=== PATIENT | male | born 1965 | race Caucasian/White ===

== ENCOUNTER 2024-03-21 13:28 | Inpatient (IN) | payer MEDICAID ==
[~2024-03-21] VITALS: Ht 185.4 cm; Wt 76.0 kg
[2024-03-21 13:52] LABS: BASOPHILS # (AUTO) 0.1 X10'3 (0-0.2); EOSINOPHILS # (AUTO) 0.1 X10'3 (0-0.9); HEMOGLOBIN 11.9 g/dl (14.0-17.9); LYMPHOCYTES # (AUTO) 11.8 X10'3 (1.1-4.8); MEAN PLATELET VOLUME 7.7 FL (7.4-10.4); MONOCYTES # (AUTO) 1.3 X10'3 (0-0.9)
[2024-03-21 13:55] LABS: BASOPHILS % (AUTO) 0.3 % (0-1); EOSINOPHILS % (AUTO) 0.5 % (0-6); HEMATOCRIT 35.6 % (42.0-52.0); LYMPHOCYTES % (AUTO) 60.6 % (21-51); MEAN CORPUSCULAR HEMOGLOBIN 30.1 PG (27.0-31.0); MEAN CORPUSCULAR HGB CONC 33.2 g/dL (33.0-36.5); MEAN CORPUSCULAR VOLUME 90.6 FL (78-98); MONOCYTES % (AUTO) 6.7 % (2-12); NEUTROPHILS # (AUTO) 6.2 X10'3 (1.8-7.7); NEUTROPHILS % (AUTO) 31.9 % (42-75); PLATELET COUNT 270 X10'3 (140-440); RED BLOOD COUNT 3.94 X10'6 (4.70-6.10); RED CELL DISTRIBUTION WIDTH 13.9 % (11.5-14.5); WHITE BLOOD COUNT 19.4 X10'3 (4.5-11.0)
[2024-03-21 13:57] LABS: ALBUMIN 3.5 G/DL (3.4-5.0); ANION GAP 8 (8-16); BLOOD UREA NITROGEN 17 MG/DL (7-18); BUN/CREATININE RATIO 12.5 (10.0-20.0); CALCIUM 8.8 MG/DL (8.5-10.1); CHLORIDE 97 MMOL/L (99-107); CREATININE 1.36 MG/DL (0.60-1.10); GLUCOSE 103 MG/DL (70-104); POTASSIUM 4.4 MMOL/L (3.5-5.1); SODIUM 131 MMOL/L (135-145); TOTAL CARBON DIOXIDE 26.4 MMOL/L (24-32); eCRCL 65 ML/MIN; eGFR 53 ML/MIN
[2024-03-21 14:01] LABS: APTT 26 SECONDS (22-32); PROTHROMBIN TIME 10.9 SECONDS (9.0-12.0)
[2024-03-21 15:06] LABS: SMUDGE CELLS FEW; TOTAL CELLS COUNTED 100
[2024-03-21 15:07] LABS: BURR CELLS FEW; PLATELET ESTIMATE NORMAL
[2024-03-21 15:45] LABS: ALANINE AMINOTRANSFERASE 23 U/L (12-78); ALKALINE PHOSPHATASE 68 IU/L (46-116); ASPARTATE AMINO TRANSFERASE 20 U/L (10-37); BILIRUBIN,TOTAL 0.5 MG/DL (0.1-1.0); TOTAL PROTEIN 6.9 G/DL (6.4-8.2)
[2024-03-21 16:56] LABS: BILIRUBIN,URINE NEGATIVE (Neg); CLARITY,URINE CLEAR (Clear); COLOR,URINE YELLOW (Yellow); GLUCOSE, URINE NEGATIVE (Neg); KETONES,URINE NEGATIVE (Neg); LEUKOCYTE ESTERASE ,URINE NEGATIVE (Neg); NITRITES, URINE NEGATIVE (Neg); OCCULT BLOOD,URINE NEGATIVE (Neg); PROTEIN,URINE NEGATIVE (Neg); UA COLLECTION TYPE CLN CATCH MIDSTREAM; UROBILINOGEN,URINE 0.2 E.U/dL (0.2-1.0)
[2024-03-21] MEDS ORDERED: potassium Cl 20 mEq SR tablet PO PRN ×2 (17:45)
[2024-03-21] MEDS ORDERED: HYDROcodone/acetaminophen 10/325mg tab PO PRN (17:45)
[2024-03-21] MEDS ORDERED: HYDROcodone/acetaminophen 5mg/325mg tablet PO PRN (17:45)
[2024-03-21] MEDS ORDERED: magnesium 4gm in 100ml NS 100 ML IV PRN (17:45)
[2024-03-21] MEDS ORDERED: mag hydrox/Alum hydrox/simeth 30ml oral suspension PO PRN (17:45)
[2024-03-21] MEDS ORDERED: magnesium Cl slow-release 64mg tablet PO PRN (17:45)
[2024-03-21] MEDS ORDERED: magnesium 2GM in 50ml NS 50 ML IV PRN (17:45)
[2024-03-21] MEDS ORDERED: potassium Cl 40MEQ/1/2NS 520ml 520 ML IV PRN (17:45)
[2024-03-21] MEDS ORDERED: ondansetron/PF 4mg/2ml inj IV PRN (17:45)
[2024-03-21] MEDS ORDERED: acetaminophen 325mg tablet PO PRN ×2 (17:45)
[2024-03-21 18:15] LABS: HEMOGLOBIN A1C 5.9 % (4.5-6.2)
[2024-03-21] MEDS ORDERED: iohexol 350MG/ML 100ml bottle IV ONE ×2 (18:31→19:00)
[2024-03-21 18:41] LABS: URINE AMPHETAMINE SCREEN POSITIVE (Neg); URINE BARBITUATE SCREEN NEGATIVE (Neg); URINE BENZODIAZEPINES SCREEN NEGATIVE (Neg); URINE CANNABINOID SCREEN POSITIVE (Neg); URINE COCAINE SCREEN NEGATIVE (Neg); URINE METHADONE SCREEN NEGATIVE (Neg); URINE OPIATE SCREEN NEGATIVE (Neg); URINE PHENCYCLIDINE SCREEN NEGATIVE (Neg)
[2024-03-21] MEDS: normal saline 1000ml 1,000 ML IV SCH (19:13)
[2024-03-21] MEDS: K and/or MAG REPLACEMENT MC SCH (19:57)
[2024-03-21] MEDS: heparin, porcine 5000 units/ml vial SQ SCH (23:08)
[2024-03-22 02:00] VITALS: BP 147/93; PULSE 67; RESP 16; TEMP 96.5; O2SAT 98
[2024-03-22 07:34] LABS: EOSINOPHILS # (AUTO) 0.2 X10'3 (0-0.9); HEMOGLOBIN 12.6 g/dl (14.0-17.9); MEAN CORPUSCULAR HEMOGLOBIN 30.6 PG (27.0-31.0)
[2024-03-22 07:37] LABS: BASOPHILS % (AUTO) 0.1 % (0-1); EOSINOPHILS % (AUTO) 1.1 % (0-6); HEMATOCRIT 37.2 % (42.0-52.0); LYMPHOCYTES # (AUTO) 13.7 X10'3 (1.1-4.8); MEAN CORPUSCULAR HGB CONC 33.8 g/dL (33.0-36.5); MEAN CORPUSCULAR VOLUME 90.5 FL (78-98); MONOCYTES # (AUTO) 0.9 X10'3 (0-0.9); MONOCYTES % (AUTO) 4.4 % (2-12); NEUTROPHILS % (AUTO) 25.4 % (42-75); PLATELET COUNT 260 X10'3 (140-440); RED BLOOD COUNT 4.12 X10'6 (4.70-6.10); RED CELL DISTRIBUTION WIDTH 13.9 % (11.5-14.5); WHITE BLOOD COUNT 19.8 X10'3 (4.5-11.0)
[2024-03-22 07:47] LABS: PROTHROMBIN TIME 10.4 SECONDS (9.0-12.0)
[2024-03-22] MEDS ORDERED: hydrALAZINE 20mg/ml inj. IV PRN (07:50)
[2024-03-22 08:10] LABS: ALBUMIN 3.3 G/DL (3.4-5.0); ANION GAP 11 (8-16); BLOOD UREA NITROGEN 11 MG/DL (7-18); BUN/CREATININE RATIO 12.6 (10.0-20.0); CALCIUM 8.3 MG/DL (8.5-10.1); CHLORIDE 101 MMOL/L (99-107); CHOL/HDL RATIO 3.1 (0.00-4.99); CHOLESTEROL 203 MG/DL (0-200); CREATININE 0.87 MG/DL (0.60-1.10); GLUCOSE 85 MG/DL (70-104); HDL CHOLESTEROL 66 MG/DL (35-60); LDL CHOLESTEROL 124 MG/DL (50-100); MAGNESIUM 2.1 MG/DL (1.5-2.4); PHOSPHORUS 3.1 MG/DL (2.3-4.5); SODIUM 137 MMOL/L (135-145); TOTAL CARBON DIOXIDE 25.2 MMOL/L (24-32); TRIGLYCERIDES 57 MG/DL (20-135); eCRCL 102 ML/MIN; eGFR 90 ML/MIN
[2024-03-22] MEDS: multivitamins, therapeutics tablet PO SCH (08:48)
[2024-03-22] MEDS: nicotine 14mg patch - 24hr TD ONE (08:49)
[2024-03-22] MEDS: atorvastatin 20mg tablet PO SCH (08:50)
[2024-03-22 09:04] LABS: TOTAL CELLS COUNTED 100
[2024-03-22 09:08] LABS: PLATELET ESTIMATE NORMAL; SMUDGE CELLS 3+
[2024-03-22 09:09] LABS: BURR CELLS FEW
[2024-03-22] MEDS ORDERED: DIVA500T9 PO (09:55)
[2024-03-22] MEDS ORDERED: LUMA42CA PO (09:55)
[2024-03-22] MEDS ORDERED: FLUV100T21 PO (09:55)
[2024-03-22] MEDS ORDERED: OLAN10TA73 PO (09:55)
[2024-03-22 10:05] VITALS: BP 150/85; PULSE 86; RESP 18; TEMP 98.1; O2SAT 99
[2024-03-22 17:26] VITALS: BP 145/85; PULSE 92; RESP 14; TEMP 97.4; O2SAT 97
[2024-03-22 17:26] LABS: THYROID STIMULATING HORMONE 3.78 ulU/ml (0.34-4.50)
[2024-03-22 18:00] VITALS: BP 145/85; PULSE 92; RESP 14; TEMP 97.4; O2SAT 97
[2024-03-22] MEDS: fluvoxamine 25 MG tablet PO SCH (20:01)
[2024-03-22] MEDS: olanzapine 10mg tablet PO SCH (20:01)
[2024-03-22] MEDS: divalproex sod 250mg ER (24-hour) tablet PO SCH (20:01)
[2024-03-22 22:00] VITALS: BP 150/91; PULSE 78; O2SAT 96
[2024-03-23 06:00] VITALS: BP 145/85; PULSE 84; RESP 18; TEMP 97.7; O2SAT 98
[2024-03-23 07:37] LABS: BASOPHILS # (AUTO) 0.1 X10'3 (0-0.2); BASOPHILS % (AUTO) 0.3 % (0-1); HEMOGLOBIN 12.1 g/dl (14.0-17.9); LYMPHOCYTES % (AUTO) 60.3 % (21-51); RED CELL DISTRIBUTION WIDTH 13.9 % (11.5-14.5)
[2024-03-23 07:39] LABS: EOSINOPHILS # (AUTO) 0.2 X10'3 (0-0.9); EOSINOPHILS % (AUTO) 0.9 % (0-6); HEMATOCRIT 36.4 % (42.0-52.0); MEAN CORPUSCULAR HGB CONC 33.4 g/dL (33.0-36.5); MEAN PLATELET VOLUME 8.2 FL (7.4-10.4); MONOCYTES % (AUTO) 4.5 % (2-12); NEUTROPHILS # (AUTO) 7.8 X10'3 (1.8-7.7); PLATELET COUNT 264 X10'3 (140-440); RED BLOOD COUNT 4.04 X10'6 (4.70-6.10); WHITE BLOOD COUNT 23.1 X10'3 (4.5-11.0)
[2024-03-23 07:48] LABS: PROTHROMBIN TIME 10.3 SECONDS (9.0-12.0)
[2024-03-23] MEDS: LUMATEPERONE 42 MG PO SCH (08:00)
[2024-03-23 08:02] LABS: ALBUMIN 3.3 G/DL (3.4-5.0); ANION GAP 10 (8-16); BLOOD UREA NITROGEN 10 MG/DL (7-18); BUN/CREATININE RATIO 12.7 (10.0-20.0); CALCIUM 8.8 MG/DL (8.5-10.1); CHLORIDE 95 MMOL/L (99-107); CREATININE 0.79 MG/DL (0.60-1.10); GLUCOSE 94 MG/DL (70-104); PHOSPHORUS 3.2 MG/DL (2.3-4.5); POTASSIUM 4.3 MMOL/L (3.5-5.1); SODIUM 131 MMOL/L (135-145); TOTAL CARBON DIOXIDE 25.6 MMOL/L (24-32); eCRCL 107 ML/MIN; eGFR > 90 ML/MIN
[2024-03-23] MEDS: normal saline 1000ml 1,000 ML IV SCH (08:20)
[2024-03-23 08:49] LABS: PLATELET ESTIMATE NORMAL; SMUDGE CELLS 2+; TOTAL CELLS COUNTED 100
[2024-03-23 09:02] VITALS: BP_SYST 138; PULSE 88
[2024-03-23] MEDS: lisinopril 5mg tablet PO SCH (09:02)
[2024-03-23] MEDS ORDERED: LISI5TAB22 PO (10:33)
[2024-03-23] MEDS ORDERED: ATOR20TA66 PO (10:33)
[2024-03-23] MEDS ORDERED: MULT-1085 PO (10:38)
[2024-03-23] MEDS ORDERED: ASPI-1265 PO (11:22)
[2024-03-23] MEDS: sodium chloride 1gm tablet PO SCH (11:55)
== END 2024-03-23 14:33 | disposition home or self-care (01) | DRG 812 ==
LOC: ER 13:29 → ED HOLD 17:49 → EDBEDREQ 03-22 01:48 → ORTHO 4S 03-22 01:50
PROVIDERS: ADMIT Family Medicine; ATTEND Family Medicine
PROC: B3251ZZ Computerized Tomography (CT Scan) of Bilateral Common Carotid Arteries using Low Osmolar Contrast (ICD-10-PCS; principal; 2024-03-21)
PROC: B32G1ZZ Computerized Tomography (CT Scan) of Bilateral Vertebral Arteries using Low Osmolar Contrast (ICD-10-PCS; 2024-03-21)
PROC: B32R1ZZ Computerized Tomography (CT Scan) of Intracranial Arteries using Low Osmolar Contrast (ICD-10-PCS; 2024-03-21)
PROC: B3281ZZ Computerized Tomography (CT Scan) of Bilateral Internal Carotid Arteries using Low Osmolar Contrast (ICD-10-PCS; 2024-03-21)
DX: T43.651A Poisoning by methamphetamines accidental (unintentional), initial encounter (principal); N17.0 Acute kidney failure with tubular necrosis; G92.8 Other toxic encephalopathy; R62.7 Adult failure to thrive; D64.9 Anemia, unspecified; F15.10 Other stimulant abuse, uncomplicated; F12.10 Cannabis abuse, uncomplicated; F20.9 Schizophrenia, unspecified; Y92.89 Other specified places as the place of occurrence of the external cause; Z68.22 Body mass index [BMI] 22.0-22.9, adult
CPT/HCPCS: 36415; 70450; 70496; 70498; 70551; 71045; 80048; 80053; 80061; 80305; 81003; 82948; 83036; 83605; 83735; 84100; 84145; 84439; 84443; 85007; 85025; 85610; 85730; 87040; 87081; 92508; 92616; 93005; 93306; 99285; G0378; J1644; J7030; Q9967

== ENCOUNTER 2024-05-18 16:15 | Inpatient (IN) | payer MEDICAID ==
[~2024-05-18] VITALS: Ht 175.3 cm; Wt 81.6 kg
[2024-05-18 03:45] VITALS: RESP 16; O2SAT 92
[~2024-05-18 16:15] MED LIST: ATOR20TA66 PO; DIVA500T9 PO; FLUV100T21 PO; LISI5TAB22 PO; LUMA42CA PO; MULT-1085 PO; OLAN10TA73 PO
[2024-05-18 17:18] LABS: BASOPHILS # (AUTO) 0.1 X10'3 (0-0.2); EOSINOPHILS # (AUTO) 0.2 X10'3 (0-0.9); MEAN PLATELET VOLUME 7.5 FL (7.4-10.4); MONOCYTES # (AUTO) 0.9 X10'3 (0-0.9); NEUTROPHILS # (AUTO) 5.3 X10'3 (1.8-7.7)
[2024-05-18 17:20] LABS: BASOPHILS % (AUTO) 0.4 % (0-1); EOSINOPHILS % (AUTO) 0.7 % (0-6); HEMATOCRIT 34.5 % (42.0-52.0); HEMOGLOBIN 11.7 g/dl (14.0-17.9); LYMPHOCYTES # (AUTO) 17.3 X10'3 (1.1-4.8); LYMPHOCYTES % (AUTO) 72.8 % (21-51); MEAN CORPUSCULAR HEMOGLOBIN 30.8 PG (27.0-31.0); MEAN CORPUSCULAR HGB CONC 33.9 g/dL (33.0-36.5); MEAN CORPUSCULAR VOLUME 90.9 FL (78-98); NEUTROPHILS % (AUTO) 22.1 % (42-75); PLATELET COUNT 264 X10'3 (140-440); RED BLOOD COUNT 3.79 X10'6 (4.70-6.10); RED CELL DISTRIBUTION WIDTH 14.5 % (11.5-14.5); WHITE BLOOD COUNT 23.8 X10'3 (4.5-11.0)
[2024-05-18 17:27] LABS: ALBUMIN 3.5 G/DL (3.4-5.0); ANION GAP 7 (8-16); BLOOD UREA NITROGEN 14 MG/DL (7-18); BUN/CREATININE RATIO 18.9 (10.0-20.0); CALCIUM 8.7 MG/DL (8.5-10.1); CHLORIDE 96 MMOL/L (99-107); CREATININE 0.74 MG/DL (0.60-1.10); ETHANOL < 10 MG/DL (<10); GLUCOSE 105 MG/DL (70-104); POTASSIUM 4.2 MMOL/L (3.5-5.1); SALICYLATE 3.5 MG/DL (4.0-20.0); SODIUM 132 MMOL/L (135-145); eCRCL 105 ML/MIN; eGFR > 90 ML/MIN
[2024-05-18 17:37] LABS: ACETAMINOPHEN < 2.0 UG/ML (10-30)
[2024-05-18 18:27] LABS: TOTAL CELLS COUNTED 100
[2024-05-18 18:28] LABS: PLATELET ESTIMATE NORMAL
[2024-05-18 18:33] LABS: SMUDGE CELLS 2+
[2024-05-18 20:17] LABS: EOSINOPHILS # (AUTO) 0.1 X10'3 (0-0.9); MEAN PLATELET VOLUME 7.4 FL (7.4-10.4); MONOCYTES # (AUTO) 0.7 X10'3 (0-0.9)
[2024-05-18 20:18] LABS: BASOPHILS # (AUTO) 0.1 X10'3 (0-0.2); BASOPHILS % (AUTO) 0.3 % (0-1); EOSINOPHILS % (AUTO) 0.6 % (0-6); HEMOGLOBIN 11.2 g/dl (14.0-17.9); LYMPHOCYTES # (AUTO) 15.3 X10'3 (1.1-4.8); LYMPHOCYTES % (AUTO) 70.1 % (21-51); MEAN CORPUSCULAR HEMOGLOBIN 30.9 PG (27.0-31.0); MEAN CORPUSCULAR HGB CONC 33.9 g/dL (33.0-36.5); MEAN CORPUSCULAR VOLUME 91.1 FL (78-98); MONOCYTES % (AUTO) 3.3 % (2-12); NEUTROPHILS # (AUTO) 5.6 X10'3 (1.8-7.7); NEUTROPHILS % (AUTO) 25.7 % (42-75); PLATELET COUNT 251 X10'3 (140-440); RED BLOOD COUNT 3.62 X10'6 (4.70-6.10); RED CELL DISTRIBUTION WIDTH 14.1 % (11.5-14.5); WHITE BLOOD COUNT 21.9 X10'3 (4.5-11.0)
[2024-05-18 21:14] LABS: BILIRUBIN,URINE NEGATIVE (Neg); CLARITY,URINE CLEAR (Clear); COLOR,URINE YELLOW (Yellow); GLUCOSE, URINE NEGATIVE (Neg); KETONES,URINE NEGATIVE (Neg); LEUKOCYTE ESTERASE ,URINE NEGATIVE (Neg); NITRITES, URINE NEGATIVE (Neg); OCCULT BLOOD,URINE NEGATIVE (Neg); PH,URINE 7.5 (4.8-8.0); PROTEIN,URINE NEGATIVE (Neg); UROBILINOGEN,URINE 0.2 E.U/dL (0.2-1.0)
[2024-05-18 21:23] LABS: UA COLLECTION TYPE CLN CATCH MIDSTREAM
[2024-05-18 21:29] LABS: URINE AMPHETAMINE SCREEN NEGATIVE (Neg); URINE BARBITUATE SCREEN NEGATIVE (Neg); URINE BENZODIAZEPINES SCREEN NEGATIVE (Neg); URINE CANNABINOID SCREEN POSITIVE (Neg); URINE COCAINE SCREEN NEGATIVE (Neg); URINE METHADONE SCREEN NEGATIVE (Neg); URINE OPIATE SCREEN NEGATIVE (Neg); URINE PHENCYCLIDINE SCREEN NEGATIVE (Neg)
[2024-05-18] MEDS ORDERED: OLAN5TAB75 PO (21:42)
[2024-05-18] MEDS ORDERED: magnesium hydroxide 30ml (MOM) UD suspension PO PRN (22:20)
[2024-05-18] MEDS ORDERED: magnesium sulf-water 2g/50mL 50 ML IV PRN (22:20)
[2024-05-18] MEDS ORDERED: ondansetron/PF 4mg/2ml inj IV PRN (22:20)
[2024-05-18] MEDS ORDERED: mag hydrox/Alum hydrox/simeth 30ml oral suspension PO PRN (22:20)
[2024-05-18] MEDS ORDERED: potassium Cl 20 mEq SR tablet PO PRN ×2 (22:20)
[2024-05-18] MEDS ORDERED: potassium Cl 40MEQ/1/2NS 520ml 520 ML IV PRN (22:20)
[2024-05-18] MEDS ORDERED: magnesium Cl slow-release 64mg tablet PO PRN (22:20)
[2024-05-18] MEDS ORDERED: magnesium sulf-water 4G/100mL 100 ML IV PRN (22:20)
[2024-05-19] VITALS (8 sets, daily range): BP systolic 130–149; BP diastolic 70–94; PULSE 70–91; RESP 14–16; TEMP 96.9–98.1; O2SAT 92–100
[2024-05-19] MEDS: normal saline 1000ml 1,000 ML IV SCH (01:15)
[2024-05-19 05:54] LABS: BASOPHILS # (AUTO) 0.1 X10'3 (0-0.2); HEMOGLOBIN 11.2 g/dl (14.0-17.9); MONOCYTES # (AUTO) 0.8 X10'3 (0-0.9)
[2024-05-19 05:57] LABS: BASOPHILS % (AUTO) 0.4 % (0-1); EOSINOPHILS # (AUTO) 0.2 X10'3 (0-0.9); EOSINOPHILS % (AUTO) 1.2 % (0-6); HEMATOCRIT 33.5 % (42.0-52.0); LYMPHOCYTES # (AUTO) 15.3 X10'3 (1.1-4.8); LYMPHOCYTES % (AUTO) 74.1 % (21-51); MEAN CORPUSCULAR HEMOGLOBIN 30.3 PG (27.0-31.0); MEAN CORPUSCULAR HGB CONC 33.4 g/dL (33.0-36.5); MEAN CORPUSCULAR VOLUME 90.8 FL (78-98); MEAN PLATELET VOLUME 7.7 FL (7.4-10.4); MONOCYTES % (AUTO) 3.8 % (2-12); NEUTROPHILS # (AUTO) 4.2 X10'3 (1.8-7.7); NEUTROPHILS % (AUTO) 20.5 % (42-75); PLATELET COUNT 250 X10'3 (140-440); RED BLOOD COUNT 3.69 X10'6 (4.70-6.10); RED CELL DISTRIBUTION WIDTH 14.2 % (11.5-14.5); WHITE BLOOD COUNT 20.7 X10'3 (4.5-11.0)
[2024-05-19 06:12] LABS: ALANINE AMINOTRANSFERASE 19 U/L (12-78); ALBUMIN 3.1 G/DL (3.4-5.0); ALKALINE PHOSPHATASE 84 IU/L (46-116); ANION GAP 7 (8-16); ASPARTATE AMINO TRANSFERASE 11 U/L (10-37); BILIRUBIN,TOTAL 0.3 MG/DL (0.1-1.0); BLOOD UREA NITROGEN 12 MG/DL (7-18); BUN/CREATININE RATIO 17.4 (10.0-20.0); CALCIUM 8.6 MG/DL (8.5-10.1); CHLORIDE 98 MMOL/L (99-107); CREATININE 0.69 MG/DL (0.60-1.10); GLUCOSE 86 MG/DL (70-104); PHOSPHORUS 3.3 MG/DL (2.3-4.5); POTASSIUM 4.1 MMOL/L (3.5-5.1); SODIUM 133 MMOL/L (135-145); TOTAL CARBON DIOXIDE 28.3 MMOL/L (24-32); TOTAL PROTEIN 6.3 G/DL (6.4-8.2); eCRCL 112 ML/MIN; eGFR > 90 ML/MIN
[2024-05-19 07:07] LABS: TOTAL CELLS COUNTED 100
[2024-05-19 07:09] LABS: PLATELET ESTIMATE NORMAL; SMUDGE CELLS 2+
[2024-05-19] MEDS: pantoprazole 40mg Tablet.DR PO SCH (07:30)
[2024-05-19] MEDS: K and/or MAG REPLACEMENT MC SCH (08:00)
[2024-05-19] MEDS: LUMATEPERONE TOSYLATE 42 MG PO SCH (08:00)
[2024-05-19] MEDS ORDERED: fentaNYL/PF 50MCG/1 ML 2ML syringe ONE (12:58)
[2024-05-19] MEDS ORDERED: MIDAZolam 1 MG/ML 5ML VIAL ONE (12:58)
[2024-05-19] MEDS ORDERED: LIDOcaine 2% Viscous 15ml cup ONE (12:58)
[2024-05-19] MEDS ORDERED: diphenhydrAMINE 50 mg/ml inj ONE (12:58)
[2024-05-19] MEDS: divalproex sod 250mg ER (24-hour) tablet PO SCH (14:39)
[2024-05-19] MEDS: fluvoxamine 25 MG tablet PO SCH (14:39)
[2024-05-19] MEDS: atorvastatin 20mg tablet PO SCH (14:39)
[2024-05-19] MEDS: lisinopril 5mg tablet PO SCH (14:42)
[2024-05-19] MEDS: heparin, porcine 5000 units/ml vial SQ SCH (14:42)
[2024-05-19] MEDS: OLANZAPINE 5 MG TABLET PO SCH (20:35)
[2024-05-20 08:00] VITALS: RESP 14; O2SAT 97
[2024-05-20 10:00] VITALS: BP 142/86; PULSE 96; RESP 14; TEMP 98.1; O2SAT 97
[2024-05-20 17:42] LABS: BASOPHILS # (AUTO) 0.1 X10'3 (0-0.2); BASOPHILS % (AUTO) 0.3 % (0-1); MEAN CORPUSCULAR HGB CONC 33.7 g/dL (33.0-36.5); MEAN PLATELET VOLUME 7.6 FL (7.4-10.4); MONOCYTES # (AUTO) 1.1 X10'3 (0-0.9); MONOCYTES % (AUTO) 4.9 % (2-12)
[2024-05-20 17:44] LABS: EOSINOPHILS # (AUTO) 0.2 X10'3 (0-0.9); EOSINOPHILS % (AUTO) 0.7 % (0-6); HEMATOCRIT 38.8 % (42.0-52.0); HEMOGLOBIN 13.1 g/dl (14.0-17.9); LYMPHOCYTES # (AUTO) 16.1 X10'3 (1.1-4.8); LYMPHOCYTES % (AUTO) 70.2 % (21-51); MEAN CORPUSCULAR HEMOGLOBIN 30.7 PG (27.0-31.0); MEAN CORPUSCULAR VOLUME 91.1 FL (78-98); NEUTROPHILS # (AUTO) 5.5 X10'3 (1.8-7.7); NEUTROPHILS % (AUTO) 23.9 % (42-75); PLATELET COUNT 299 X10'3 (140-440); RED BLOOD COUNT 4.25 X10'6 (4.70-6.10); RED CELL DISTRIBUTION WIDTH 13.9 % (11.5-14.5)
[2024-05-20 17:57] LABS: ALANINE AMINOTRANSFERASE 18 U/L (12-78); ALBUMIN 3.6 G/DL (3.4-5.0); ALKALINE PHOSPHATASE 102 IU/L (46-116); ANION GAP 9 (8-16); ASPARTATE AMINO TRANSFERASE 14 U/L (10-37); BILIRUBIN,TOTAL 0.3 MG/DL (0.1-1.0); BLOOD UREA NITROGEN 16 MG/DL (7-18); BUN/CREATININE RATIO 17.6 (10.0-20.0); CALCIUM 9.1 MG/DL (8.5-10.1); CHLORIDE 98 MMOL/L (99-107); CREATININE 0.91 MG/DL (0.60-1.10); GLUCOSE 93 MG/DL (70-104); POTASSIUM 4.2 MMOL/L (3.5-5.1); SODIUM 134 MMOL/L (135-145); TOTAL CARBON DIOXIDE 26.6 MMOL/L (24-32); TOTAL PROTEIN 7.1 G/DL (6.4-8.2); eCRCL 85 ML/MIN; eGFR 85 ML/MIN
[2024-05-20 18:00] VITALS: BP 133/91; PULSE 95; RESP 16; TEMP 98; O2SAT 98
[2024-05-20] MEDS: CefTRIAXone/D5W-Rocephin 1gm 50 ML IV SCH (19:39)
[2024-05-20] MEDS: vancomycin inj 1,000 MG in normal saline 250ml IV soln 250 ML IV SCH (19:40)
[2024-05-20 20:53] LABS: LYMPHOCYTES % (MANUAL) 65 % (21-51); MONOCYTES % (MANUAL) 4 % (2-12); NEUTROPHILS % (MANUAL) 31 % (42-75); SMUDGE CELLS 2+
[2024-05-20 20:54] LABS: PLATELET ESTIMATE NORMAL
[2024-05-20 20:56] LABS: TOTAL CELLS COUNTED 100
[2024-05-20 22:00] VITALS: BP 105/58; PULSE 78; RESP 16; TEMP 98.8; O2SAT 97
[2024-05-20] MEDS: acetaminophen 325mg tablet PO PRN (23:05)
[2024-05-21 06:35] LABS: BASOPHILS # (AUTO) 0.1 X10'3 (0-0.2); BASOPHILS % (AUTO) 0.2 % (0-1); EOSINOPHILS # (AUTO) 0.2 X10'3 (0-0.9); HEMOGLOBIN 13.1 g/dl (14.0-17.9); LYMPHOCYTES # (AUTO) 17.6 X10'3 (1.1-4.8)
[2024-05-21 06:37] LABS: HEMATOCRIT 38.7 % (42.0-52.0); LYMPHOCYTES % (AUTO) 74.3 % (21-51); MEAN CORPUSCULAR HEMOGLOBIN 30.8 PG (27.0-31.0); MEAN CORPUSCULAR HGB CONC 33.8 g/dL (33.0-36.5); MEAN PLATELET VOLUME 8.3 FL (7.4-10.4); MONOCYTES # (AUTO) 1.4 X10'3 (0-0.9); MONOCYTES % (AUTO) 5.7 % (2-12); NEUTROPHILS # (AUTO) 4.4 X10'3 (1.8-7.7); NEUTROPHILS % (AUTO) 18.8 % (42-75); PLATELET COUNT 280 X10'3 (140-440); RED BLOOD COUNT 4.25 X10'6 (4.70-6.10); WHITE BLOOD COUNT 23.6 X10'3 (4.5-11.0)
[2024-05-21 07:02] LABS: ALANINE AMINOTRANSFERASE 14 U/L (12-78); ALBUMIN 3.5 G/DL (3.4-5.0); ALKALINE PHOSPHATASE 90 IU/L (46-116); ANION GAP 7 (8-16); ASPARTATE AMINO TRANSFERASE 18 U/L (10-37); BILIRUBIN,TOTAL 0.4 MG/DL (0.1-1.0); BLOOD UREA NITROGEN 17 MG/DL (7-18); CALCIUM 8.8 MG/DL (8.5-10.1); CHLORIDE 102 MMOL/L (99-107); CREATININE 0.85 MG/DL (0.60-1.10); GLUCOSE 90 MG/DL (70-104); MAGNESIUM 2.3 MG/DL (1.5-2.4); PHOSPHORUS 4.5 MG/DL (2.3-4.5); POTASSIUM 4.3 MMOL/L (3.5-5.1); SODIUM 136 MMOL/L (135-145); TOTAL CARBON DIOXIDE 26.8 MMOL/L (24-32); TOTAL PROTEIN 6.9 G/DL (6.4-8.2); eCRCL 91 ML/MIN; eGFR > 90 ML/MIN
[2024-05-21 08:00] VITALS: RESP 16; O2SAT 96
[2024-05-21 10:00] VITALS: BP 115/73; PULSE 87; RESP 15; TEMP 97.7; O2SAT 99
[2024-05-21 18:00] VITALS: BP 136/91; PULSE 95; RESP 16; TEMP 97.4; O2SAT 99
[2024-05-21 22:00] VITALS: BP 137/79; PULSE 78; RESP 18; TEMP 98.3; O2SAT 97
[2024-05-22 08:00] VITALS: RESP 18
[2024-05-22 08:01] LABS: BASOPHILS # (AUTO) 0.1 X10'3 (0-0.2); BASOPHILS % (AUTO) 0.3 % (0-1); EOSINOPHILS # (AUTO) 0.2 X10'3 (0-0.9); HEMATOCRIT 35.9 % (42.0-52.0); HEMOGLOBIN 11.9 g/dl (14.0-17.9); LYMPHOCYTES % (AUTO) 75.7 % (21-51); MEAN CORPUSCULAR HEMOGLOBIN 30.2 PG (27.0-31.0); MEAN CORPUSCULAR HGB CONC 33.1 g/dL (33.0-36.5); MEAN CORPUSCULAR VOLUME 91.1 FL (78-98); MEAN PLATELET VOLUME 7.8 FL (7.4-10.4); MONOCYTES # (AUTO) 0.7 X10'3 (0-0.9); MONOCYTES % (AUTO) 3.4 % (2-12); NEUTROPHILS # (AUTO) 4.2 X10'3 (1.8-7.7); NEUTROPHILS % (AUTO) 19.6 % (42-75); PLATELET COUNT 267 X10'3 (140-440); RED BLOOD COUNT 3.94 X10'6 (4.70-6.10); RED CELL DISTRIBUTION WIDTH 14.3 % (11.5-14.5); WHITE BLOOD COUNT 21.2 X10'3 (4.5-11.0)
[2024-05-22 08:23] LABS: ALANINE AMINOTRANSFERASE 15 U/L (12-78); ALBUMIN 3.1 G/DL (3.4-5.0); ALKALINE PHOSPHATASE 83 IU/L (46-116); ANION GAP 6 (8-16); ASPARTATE AMINO TRANSFERASE 15 U/L (10-37); BILIRUBIN,TOTAL 0.4 MG/DL (0.1-1.0); BLOOD UREA NITROGEN 14 MG/DL (7-18); BUN/CREATININE RATIO 19.7 (10.0-20.0); CALCIUM 8.5 MG/DL (8.5-10.1); CHLORIDE 103 MMOL/L (99-107); CREATININE 0.71 MG/DL (0.60-1.10); GLUCOSE 89 MG/DL (70-104); MAGNESIUM 2.2 MG/DL (1.5-2.4); PHOSPHORUS 3.7 MG/DL (2.3-4.5); POTASSIUM 4.1 MMOL/L (3.5-5.1); SODIUM 136 MMOL/L (135-145); TOTAL CARBON DIOXIDE 26.6 MMOL/L (24-32); TOTAL PROTEIN 6.2 G/DL (6.4-8.2); eCRCL 109 ML/MIN; eGFR > 90 ML/MIN
[2024-05-22 09:29] LABS: BURR CELLS 1+; PLATELET ESTIMATE NORMAL; SMUDGE CELLS 2+; TOTAL CELLS COUNTED 100
[2024-05-22 09:30] LABS: POIKILOCYTOSIS 1+; SCHISTOCYTES FEW
[2024-05-22 10:55] VITALS: BP 124/68; PULSE 89; RESP 14; O2SAT 98
[2024-05-22] MEDS ORDERED: NICOTINE POLACRILEX 2 MG LOZENGE BC PRN (16:10)
[2024-05-22] MEDS ORDERED: loperamide 2mg capsule PO PRN (16:10)
[2024-05-22] MEDS ORDERED: acetaminophen 325mg tablet PO PRN ×2 (16:10)
[2024-05-22] MEDS ORDERED: mag hydrox/Alum hydrox/simeth 30ml oral suspension PO PRN (16:10)
[2024-05-22] MEDS ORDERED: magnesium hydroxide 30ml (MOM) UD suspension PO PRN (16:10)
[2024-05-23] MEDS ORDERED: nicotine 21mg patch - 24 hr TD SCH (08:00)
== END 2024-05-22 16:49 | DRG 254 ==
LOC: ER 16:16 → ED HOLD 22:18 → ORTHO 4S 05-19 02:50 → ADULT MH 05-22 16:06 → ORTHO 4S 05-22 16:06
PROVIDERS: ADMIT Internal Medicine Critical Care Medicine; ATTEND Family Medicine
PROC: 0DJ08ZZ Inspection of Upper Intestinal Tract, Via Natural or Artificial Opening Endoscopic (ICD-10-PCS; principal; 2024-05-19)
DX: T18.9XXA Foreign body of alimentary tract, part unspecified, initial encounter (principal); C95.90 Leukemia, unspecified not having achieved remission; E87.1 Hypo-osmolality and hyponatremia; F31.9 Bipolar disorder, unspecified; R62.7 Adult failure to thrive; Z20.822 Contact with and (suspected) exposure to COVID-19; F19.10 Other psychoactive substance abuse, uncomplicated; F20.9 Schizophrenia, unspecified; W44.8XXA Other foreign body entering into or through a natural orifice, initial encounter; Y93.89 Activity, other specified; Y92.89 Other specified places as the place of occurrence of the external cause; Y99.8 Other external cause status; Z68.26 Body mass index [BMI] 26.0-26.9, adult
CPT/HCPCS: 36415; 43235; 70450; 71045; 74018; 74176; 80048; 80053; 80305; 80320; 80329; 81003; 83605; 83735; 84100; 84145; 85007; 85025; 87040; 87081; 87811; 99152; 99285; A4620; G0378; J0696; J1200; J1644; J2250; J3010; J3370; J7030; J7050

== ENCOUNTER 2024-05-22 14:21 | Inpatient (IN) | payer MEDICAID ==
[~2024-05-22] VITALS: Ht 175.3 cm; Wt 76.8 kg
[~2024-05-22 14:21] MED LIST changes: -OLAN10TA73 PO; +OLAN5TAB75 PO
[2024-05-22] MEDS ORDERED: magnesium hydroxide 30ml (MOM) UD suspension PO PRN (16:30)
[2024-05-22] MEDS ORDERED: acetaminophen 325mg tablet PO PRN ×2 (16:30)
[2024-05-22] MEDS ORDERED: mag hydrox/Alum hydrox/simeth 30ml oral suspension PO PRN (16:30)
[2024-05-22] MEDS ORDERED: NICOTINE POLACRILEX 2 MG LOZENGE BC PRN (16:30)
[2024-05-22] MEDS ORDERED: loperamide 2mg capsule PO PRN (16:30)
[2024-05-22 17:04] VITALS: RESP 15; O2SAT 66
[2024-05-22 17:13] VITALS: BP 151/98; PULSE 66; RESP 15; TEMP 98.2; O2SAT 98
[2024-05-22 19:00] VITALS: BP 148/88; PULSE 80; RESP 14; TEMP 97.8; O2SAT 80; O2SAT 98
[2024-05-23 07:10] VITALS: BP 113/62; PULSE 82; RESP 16; TEMP 98.6; O2SAT 98
[2024-05-23] MEDS: LUMATEPERONE TOSYLATE 42 MG PO SCH (08:00)
[2024-05-23] MEDS: nicotine 21mg patch - 24 hr TD SCH (08:00)
[2024-05-23] MEDS: atorvastatin 20mg tablet PO SCH (08:45)
[2024-05-23] MEDS: lisinopril 5mg tablet PO SCH (08:45)
[2024-05-23] MEDS: fluvoxamine 25 MG tablet PO SCH (08:45)
[2024-05-23] MEDS: multivitamins, therapeutics tablet PO SCH (08:45)
[2024-05-23] MEDS: divalproex sod 250mg ER (24-hour) tablet PO SCH (08:45)
[2024-05-23 08:49] VITALS: RESP 16; O2SAT 98
[2024-05-23 09:13] LABS: CHOL/HDL RATIO 2.8 (0.00-4.99); CHOLESTEROL 138 MG/DL (0-200); HDL CHOLESTEROL 50 MG/DL (35-60); HEMOGLOBIN A1C 5.4 % (4.5-6.2); LDL CHOLESTEROL 71 MG/DL (50-100); TRIGLYCERIDES 66 MG/DL (20-135)
[2024-05-23 19:00] VITALS: BP 140/85; PULSE 85; RESP 18; TEMP 98.2; O2SAT 100
[2024-05-23] MEDS: OLANZAPINE 5 MG TABLET PO SCH (20:21)
[2024-05-24 07:09] VITALS: BP 108/78; PULSE 76; RESP 16; TEMP 97.9; O2SAT 96
[2024-05-24 09:09] VITALS: RESP 16; O2SAT 96
[2024-05-24] MEDS ORDERED: LUMATEPERONE TOSYLATE 42 MG PO SCH (14:24)
[2024-05-24 19:00] VITALS: RESP 18; O2SAT 94
[2024-05-24 19:22] VITALS: BP 128/78; PULSE 94; RESP 18; TEMP 97.3; O2SAT 98
[2024-05-24] MEDS: olanzapine 10mg tablet PO SCH (22:09)
[2024-05-25 07:22] VITALS: BP 102/73; PULSE 78; RESP 16; TEMP 97.8; O2SAT 98
[2024-05-25 08:14] VITALS: RESP 16; O2SAT 98
[2024-05-25 19:00] VITALS: RESP 14; O2SAT 92
[2024-05-25 19:41] LABS: EOSINOPHILS # (AUTO) 0.2 X10'3 (0-0.9); MONOCYTES # (AUTO) 1.2 X10'3 (0-0.9); RED BLOOD COUNT 3.87 X10'6 (4.70-6.10)
[2024-05-25 19:42] LABS: BASOPHILS % (AUTO) 0.2 % (0-1); EOSINOPHILS % (AUTO) 0.8 % (0-6); HEMATOCRIT 34.8 % (42.0-52.0); LYMPHOCYTES # (AUTO) 17.6 X10'3 (1.1-4.8); LYMPHOCYTES % (AUTO) 73.2 % (21-51); MEAN CORPUSCULAR HGB CONC 34.5 g/dL (33.0-36.5); MEAN PLATELET VOLUME 8.2 FL (7.4-10.4); NEUTROPHILS % (AUTO) 20.8 % (42-75); PLATELET COUNT 275 X10'3 (140-440); RED CELL DISTRIBUTION WIDTH 13.9 % (11.5-14.5)
[2024-05-25 19:47] VITALS: BP 110/67; PULSE 83; RESP 14; TEMP 97.4; O2SAT 92
[2024-05-25 19:55] LABS: ALANINE AMINOTRANSFERASE 25 U/L (12-78); ALBUMIN 3.4 G/DL (3.4-5.0); ALBUMIN/GLOBULIN RATIO 1.2 (1.1-1.5); ALKALINE PHOSPHATASE 102 IU/L (46-116); ANION GAP 7 (8-16); ASPARTATE AMINO TRANSFERASE 24 U/L (10-37); BILIRUBIN,TOTAL 0.2 MG/DL (0.1-1.0); BLOOD UREA NITROGEN 14 MG/DL (7-18); BUN/CREATININE RATIO 17.3 (10.0-20.0); CALCIUM 8.8 MG/DL (8.5-10.1); CHLORIDE 95 MMOL/L (99-107); CREATININE 0.81 MG/DL (0.60-1.10); GLUCOSE 87 MG/DL (70-104); POTASSIUM 4.4 MMOL/L (3.5-5.1); SODIUM 132 MMOL/L (135-145); TOTAL CARBON DIOXIDE 29.8 MMOL/L (24-32); TOTAL PROTEIN 6.3 G/DL (6.4-8.2); eCRCL 96 ML/MIN; eGFR > 90 ML/MIN
[2024-05-25 21:27] LABS: TOTAL CELLS COUNTED 100
[2024-05-25 21:28] LABS: PLATELET ESTIMATE NORMAL; POIKILOCYTOSIS 1+
[2024-05-25 21:29] LABS: BURR CELLS 1+; SCHISTOCYTES FEW; SMUDGE CELLS 2+
[2024-05-26 07:30] VITALS: BP 113/72; PULSE 87; RESP 16; TEMP 96.9; O2SAT 98
[2024-05-26 20:00] VITALS: BP 108/56; PULSE 78; RESP 14; TEMP 97.8; O2SAT 98
[2024-05-27 07:30] VITALS: BP 127/79; PULSE 74; RESP 16; TEMP 96.5; O2SAT 100
[2024-05-27 19:00] VITALS: BP 121/76; PULSE 80; RESP 16; TEMP 97.9; O2SAT 99
[2024-05-28 07:30] VITALS: BP 112/60; PULSE 83; RESP 18; TEMP 97.4; O2SAT 99
[2024-05-28 08:17] LABS: BASOPHILS # (AUTO) 0.1 X10'3 (0-0.2); BASOPHILS % (AUTO) 0.2 % (0-1); EOSINOPHILS # (AUTO) 0.3 X10'3 (0-0.9); EOSINOPHILS % (AUTO) 1.1 % (0-6); HEMATOCRIT 38.3 % (42.0-52.0); HEMOGLOBIN 12.9 g/dl (14.0-17.9); LYMPHOCYTES # (AUTO) 23.3 X10'3 (1.1-4.8); LYMPHOCYTES % (AUTO) 80.7 % (21-51); MEAN CORPUSCULAR HEMOGLOBIN 30.5 PG (27.0-31.0); MEAN CORPUSCULAR HGB CONC 33.7 g/dL (33.0-36.5); MEAN CORPUSCULAR VOLUME 90.5 FL (78-98); MEAN PLATELET VOLUME 8.2 FL (7.4-10.4); MONOCYTES # (AUTO) 0.9 X10'3 (0-0.9); NEUTROPHILS # (AUTO) 4.3 X10'3 (1.8-7.7); PLATELET COUNT 301 X10'3 (140-440); RED BLOOD COUNT 4.23 X10'6 (4.70-6.10)
[2024-05-28 08:18] LABS: WHITE BLOOD COUNT 28.8 X10'3 (4.5-11.0)
[2024-05-28 08:37] LABS: PLATELET ESTIMATE NORMAL; TOTAL CELLS COUNTED 100
[2024-05-28 19:00] VITALS: RESP 16; O2SAT 97
[2024-05-28 19:21] VITALS: BP 126/74; PULSE 76; RESP 16; TEMP 97.8; O2SAT 97
[2024-05-28] MEDS: OLANZAPINE 5 MG TABLET PO SCH (20:41)
[2024-05-29 07:00] VITALS: RESP 14; O2SAT 96
[2024-05-29 07:30] VITALS: BP 132/83; PULSE 78; RESP 14; TEMP 98; O2SAT 96
[2024-05-29 07:50] LABS: EOSINOPHILS # (AUTO) 0.3 X10'3 (0-0.9); HEMOGLOBIN 12.8 g/dl (14.0-17.9); MEAN CORPUSCULAR HGB CONC 34.6 g/dL (33.0-36.5); MEAN PLATELET VOLUME 7.7 FL (7.4-10.4); NEUTROPHILS # (AUTO) 3.6 X10'3 (1.8-7.7); NEUTROPHILS % (AUTO) 13.8 % (42-75); RED BLOOD COUNT 4.12 X10'6 (4.70-6.10)
[2024-05-29 07:51] LABS: BASOPHILS % (AUTO) 0.2 % (0-1); EOSINOPHILS % (AUTO) 1.1 % (0-6); HEMATOCRIT 37.1 % (42.0-52.0); LYMPHOCYTES # (AUTO) 21.4 X10'3 (1.1-4.8); LYMPHOCYTES % (AUTO) 81.8 % (21-51); MEAN CORPUSCULAR HEMOGLOBIN 31.2 PG (27.0-31.0); MEAN CORPUSCULAR VOLUME 90.2 FL (78-98); MONOCYTES # (AUTO) 0.8 X10'3 (0-0.9); MONOCYTES % (AUTO) 3.1 % (2-12); PLATELET COUNT 279 X10'3 (140-440); RED CELL DISTRIBUTION WIDTH 14.1 % (11.5-14.5)
[2024-05-29 08:06] LABS: ALANINE AMINOTRANSFERASE 26 U/L (12-78); ALBUMIN 3.5 G/DL (3.4-5.0); ALBUMIN/GLOBULIN RATIO 1.1 (1.1-1.5); ALKALINE PHOSPHATASE 90 IU/L (46-116); ANION GAP 5 (8-16); ASPARTATE AMINO TRANSFERASE 17 U/L (10-37); BILIRUBIN,TOTAL 0.3 MG/DL (0.1-1.0); BLOOD UREA NITROGEN 13 MG/DL (7-18); BUN/CREATININE RATIO 18.3 (10.0-20.0); CALCIUM 8.9 MG/DL (8.5-10.1); CHLORIDE 93 MMOL/L (99-107); CREATININE 0.71 MG/DL (0.60-1.10); GLUCOSE 95 MG/DL (70-104); POTASSIUM 4.8 MMOL/L (3.5-5.1); SODIUM 127 MMOL/L (135-145); TOTAL CARBON DIOXIDE 29.1 MMOL/L (24-32); TOTAL PROTEIN 6.8 G/DL (6.4-8.2); eCRCL 109 ML/MIN; eGFR > 90 ML/MIN
[2024-05-29 08:08] LABS: WHITE BLOOD COUNT 26.2 X10'3 (4.5-11.0)
[2024-05-29 10:36] LABS: TOTAL CELLS COUNTED 100
[2024-05-29 10:38] LABS: BURR CELLS 1+; PLATELET ESTIMATE NORMAL
[2024-05-29 19:40] VITALS: RESP 16; O2SAT 97
[2024-05-29 19:51] VITALS: BP 105/70; PULSE 86; RESP 16; TEMP 98; O2SAT 97
[2024-05-29] MEDS: olanzapine 10mg tablet PO SCH (20:09)
[2024-05-30 07:00] VITALS: BP 101/60; PULSE 74; RESP 16; RESP 74; TEMP 97.6; O2SAT 98
[2024-05-30 19:00] VITALS: BP 113/67; PULSE 88; RESP 20; RESP 22; TEMP 97.8; O2SAT 98
[2024-05-31 07:00] VITALS: BP 113/75; PULSE 79; RESP 16; TEMP 97.8; O2SAT 96
[2024-05-31 12:25] LABS: BASOPHILS % (AUTO) 0.1 % (0-1); EOSINOPHILS # (AUTO) 0.3 X10'3 (0-0.9); RED BLOOD COUNT 4.11 X10'6 (4.70-6.10)
[2024-05-31 12:27] LABS: HEMATOCRIT 37.3 % (42.0-52.0); HEMOGLOBIN 12.6 g/dl (14.0-17.9); LYMPHOCYTES # (AUTO) 21.3 X10'3 (1.1-4.8); LYMPHOCYTES % (AUTO) 78.1 % (21-51); MEAN CORPUSCULAR HEMOGLOBIN 30.6 PG (27.0-31.0); MEAN CORPUSCULAR HGB CONC 33.7 g/dL (33.0-36.5); MEAN CORPUSCULAR VOLUME 90.7 FL (78-98); MEAN PLATELET VOLUME 8.2 FL (7.4-10.4); MONOCYTES # (AUTO) 0.9 X10'3 (0-0.9); MONOCYTES % (AUTO) 3.4 % (2-12); NEUTROPHILS # (AUTO) 4.8 X10'3 (1.8-7.7); NEUTROPHILS % (AUTO) 17.4 % (42-75); PLATELET COUNT 280 X10'3 (140-440); RED CELL DISTRIBUTION WIDTH 14.1 % (11.5-14.5)
[2024-05-31 12:35] LABS: WHITE BLOOD COUNT 27.3 X10'3 (4.5-11.0)
[2024-05-31 12:37] LABS: ALANINE AMINOTRANSFERASE 26 U/L (12-78); ALBUMIN 3.7 G/DL (3.4-5.0); ALBUMIN/GLOBULIN RATIO 1.1 (1.1-1.5); ALKALINE PHOSPHATASE 100 IU/L (46-116); ANION GAP 7 (8-16); ASPARTATE AMINO TRANSFERASE 14 U/L (10-37); BILIRUBIN,TOTAL 0.4 MG/DL (0.1-1.0); BLOOD UREA NITROGEN 15 MG/DL (7-18); BUN/CREATININE RATIO 22.1 (10.0-20.0); CALCIUM 9.4 MG/DL (8.5-10.1); CHLORIDE 94 MMOL/L (99-107); CREATININE 0.68 MG/DL (0.60-1.10); GLUCOSE 95 MG/DL (70-104); POTASSIUM 4.7 MMOL/L (3.5-5.1); SODIUM 129 MMOL/L (135-145); TOTAL CARBON DIOXIDE 28.4 MMOL/L (24-32); eCRCL 114 ML/MIN; eGFR > 90 ML/MIN
[2024-05-31 13:04] LABS: PLATELET ESTIMATE NORMAL; TOTAL CELLS COUNTED 100
[2024-05-31] MEDS ORDERED: padimate O/petrolatum,white stick (Chapstick) TP PRN (13:50)
[2024-05-31 19:00] VITALS: RESP 16; O2SAT 99
[2024-05-31 20:00] VITALS: BP 91/54; PULSE 89; RESP 16; TEMP 98; O2SAT 99
[2024-06-01 07:00] VITALS: BP 114/72; PULSE 73; RESP 16; TEMP 97; O2SAT 97
[2024-06-01 19:00] VITALS: RESP 17; O2SAT 99
[2024-06-01 20:00] VITALS: BP 117/73; PULSE 83; RESP 17; TEMP 97.7; O2SAT 99
[2024-06-01] MEDS: docusate sod 100mg capsule PO SCH (20:34)
[2024-06-02 07:00] VITALS: BP 116/75; PULSE 89; RESP 12; TEMP 98.1; O2SAT 100
[2024-06-02 19:12] VITALS: BP 104/71; PULSE 95; RESP 15; TEMP 97.7; O2SAT 98
[2024-06-02 19:15] VITALS: RESP 15; O2SAT 98
[2024-06-03 07:30] VITALS: BP 113/79; PULSE 103; RESP 12; TEMP 97.3; O2SAT 100
[2024-06-03 07:35] LABS: BASOPHILS # (AUTO) 0.1 X10'3 (0-0.2); EOSINOPHILS # (AUTO) 0.5 X10'3 (0-0.9); MEAN CORPUSCULAR HEMOGLOBIN 30.4 PG (27.0-31.0); MEAN PLATELET VOLUME 8.2 FL (7.4-10.4)
[2024-06-03 07:38] LABS: BASOPHILS % (AUTO) 0.3 % (0-1); HEMATOCRIT 38.4 % (42.0-52.0); HEMOGLOBIN 12.9 g/dl (14.0-17.9); LYMPHOCYTES # (AUTO) 20.5 X10'3 (1.1-4.8); LYMPHOCYTES % (AUTO) 77.9 % (21-51); MEAN CORPUSCULAR HGB CONC 33.8 g/dL (33.0-36.5); MONOCYTES # (AUTO) 0.9 X10'3 (0-0.9); MONOCYTES % (AUTO) 3.3 % (2-12); NEUTROPHILS # (AUTO) 4.3 X10'3 (1.8-7.7); NEUTROPHILS % (AUTO) 16.5 % (42-75); PLATELET COUNT 292 X10'3 (140-440); RED BLOOD COUNT 4.26 X10'6 (4.70-6.10); RED CELL DISTRIBUTION WIDTH 13.9 % (11.5-14.5)
[2024-06-03 07:51] LABS: WHITE BLOOD COUNT 26.3 X10'3 (4.5-11.0)
[2024-06-03 08:07] LABS: ALANINE AMINOTRANSFERASE 26 U/L (12-78); ALBUMIN 3.8 G/DL (3.4-5.0); ALBUMIN/GLOBULIN RATIO 1.1 (1.1-1.5); ALKALINE PHOSPHATASE 98 IU/L (46-116); ANION GAP 7 (8-16); ASPARTATE AMINO TRANSFERASE 21 U/L (10-37); BILIRUBIN,TOTAL 0.3 MG/DL (0.1-1.0); BLOOD UREA NITROGEN 19 MG/DL (7-18); BUN/CREATININE RATIO 21.8 (10.0-20.0); CALCIUM 9.3 MG/DL (8.5-10.1); CHLORIDE 98 MMOL/L (99-107); CREATININE 0.87 MG/DL (0.60-1.10); GLUCOSE 97 MG/DL (70-104); POTASSIUM 4.7 MMOL/L (3.5-5.1); SODIUM 134 MMOL/L (135-145); TOTAL CARBON DIOXIDE 28.6 MMOL/L (24-32); TOTAL PROTEIN 7.4 G/DL (6.4-8.2); eCRCL 89 ML/MIN; eGFR 89 ML/MIN
[2024-06-03 08:36] LABS: OSMOLALITY 278 MOSM/K (280-300)
[2024-06-03 10:00] LABS: PLATELET ESTIMATE NORMAL; TOTAL CELLS COUNTED 100
[2024-06-03 17:18] LABS: OSMOLALITY UA 863 MOSM/K (50-1400)
[2024-06-03 17:19] LABS: SODIUM,URINE RANDOM 40 MEQ/L
[2024-06-03 18:57] VITALS: RESP 24; O2SAT 98
[2024-06-03 19:02] VITALS: BP 99/56; PULSE 101; RESP 24; TEMP 97.6; O2SAT 98
[2024-06-04 07:45] VITALS: BP 133/76; PULSE 93; RESP 16; TEMP 98.4; O2SAT 98
[2024-06-04 19:43] VITALS: RESP 16; O2SAT 99
[2024-06-04 19:44] VITALS: BP 129/76; PULSE 101; RESP 16; TEMP 97.9; O2SAT 99
[2024-06-04] MEDS: OLANZAPINE 5 MG TABLET PO SCH (20:09)
[2024-06-04] MEDS: olanzapine 10mg tablet PO SCH (20:09)
[2024-06-05 07:50] VITALS: BP 125/72; PULSE 72; RESP 16; TEMP 98.6; O2SAT 96
[2024-06-05] MEDS: lisinopril 2.5mg tablet PO SCH (09:22)
[2024-06-05 13:51] VITALS: BP 125/72; PULSE 72; RESP 16; TEMP 98.6; O2SAT 96
[2024-06-05] MEDS: magnesium citrate 296ml oral solution PO ONE (18:20)
[2024-06-05 19:02] VITALS: RESP 14; O2SAT 98
[2024-06-05 19:05] VITALS: BP 135/93; PULSE 83; RESP 16; TEMP 98.6; O2SAT 99
[2024-06-06 07:30] VITALS: BP 132/81; PULSE 82; RESP 16; TEMP 98.7; O2SAT 99
[2024-06-06 19:00] VITALS: RESP 16; O2SAT 100
[2024-06-06 20:00] VITALS: BP 120/69; PULSE 96; RESP 16; TEMP 98.3; O2SAT 100
[2024-06-07 07:00] VITALS: BP 128/79; PULSE 80; RESP 17; TEMP 97.5; O2SAT 93
[2024-06-07 19:26] VITALS: RESP 14; O2SAT 96
[2024-06-07 19:28] VITALS: BP 95/56; PULSE 95; RESP 14; TEMP 97.6; O2SAT 96
[2024-06-08 07:30] VITALS: BP 119/81; PULSE 77; RESP 14; TEMP 98.2; O2SAT 100
[2024-06-08 19:00] VITALS: RESP 12; O2SAT 96
[2024-06-08 20:00] VITALS: BP 121/75; PULSE 101; RESP 12; TEMP 99.1; O2SAT 99
[2024-06-09 07:30] VITALS: BP 112/72; PULSE 85; RESP 16; TEMP 98.2; O2SAT 99
[2024-06-09 19:00] VITALS: RESP 14; O2SAT 98
[2024-06-09 20:00] VITALS: BP 116/80; PULSE 95; RESP 22; TEMP 97.2; O2SAT 98
[2024-06-10 07:00] VITALS: RESP 16; O2SAT 99
[2024-06-10 08:00] VITALS: BP 129/78; PULSE 88; RESP 16; TEMP 98.2; O2SAT 99
[2024-06-10 19:00] VITALS: RESP 14; O2SAT 99
[2024-06-10 20:00] VITALS: BP 109/73; PULSE 106; RESP 14; TEMP 97.4; O2SAT 99
[2024-06-11 07:30] VITALS: BP 133/84; PULSE 89; RESP 14; TEMP 97.3; O2SAT 97
[2024-06-11 19:00] VITALS: RESP 20; O2SAT 98
[2024-06-11 20:00] VITALS: BP 119/80; PULSE 113; RESP 20; TEMP 97.6; O2SAT 98
[2024-06-12 07:15] VITALS: BP 108/83; PULSE 112; RESP 16; TEMP 97.6; O2SAT 98
[2024-06-12 07:57] VITALS: RESP 16; O2SAT 98
[2024-06-12 19:00] VITALS: RESP 16; O2SAT 98
[2024-06-12 20:00] VITALS: BP 128/80; PULSE 96; RESP 16; TEMP 97.3; O2SAT 98
[2024-06-13] MEDS: metoprolol succinate 25mg (24-HOUR) SR. Tablet PO SCH (07:23)
[2024-06-13 07:28] VITALS: RESP 16
[2024-06-13 07:30] VITALS: BP 119/81; PULSE 90; RESP 18; TEMP 98.2; O2SAT 98
[2024-06-13 19:00] VITALS: RESP 18; O2SAT 99
[2024-06-13 20:00] VITALS: BP 121/80; PULSE 81; RESP 18; TEMP 98.7; O2SAT 99
[2024-06-14 07:45] VITALS: BP 129/83; PULSE 78; RESP 18; TEMP 98.5; O2SAT 98
[2024-06-14 07:48] VITALS: RESP 18; O2SAT 98
[2024-06-14 19:00] VITALS: RESP 14; O2SAT 100
[2024-06-14 20:06] VITALS: BP 116/65; PULSE 78; RESP 14; TEMP 98.7; O2SAT 100
[2024-06-14] MEDS ORDERED: NICO-907 BC (23:48)
[2024-06-14] MEDS ORDERED: FLUV100T21 PO (23:48)
[2024-06-14] MEDS ORDERED: MULT-1085 PO (23:48)
[2024-06-14] MEDS ORDERED: ATOR40TA72 PO (23:48)
[2024-06-14] MEDS ORDERED: METO-395 PO (23:48)
[2024-06-14] MEDS ORDERED: LISI2.5T14 PO (23:48)
[2024-06-14] MEDS ORDERED: OLAN20TA19 PO (23:49)
[2024-06-14] MEDS ORDERED: OLAN5TAB75 PO (23:49)
[2024-06-15 07:00] VITALS: BP 113/75; PULSE 79; RESP 16; TEMP 98.8; O2SAT 99
[2024-06-15 08:15] VITALS: BP_SYST 130; PULSE 79
== END 2024-06-15 13:59 | disposition home or self-care (01) | DRG 750 ==
LOC: ADULT MH 14:21 → UNDOADMIN 16:19 → ADULT MH 16:19
PROVIDERS: ADMIT Psychiatry & Neurology Psychiatry; ATTEND Psychiatry & Neurology Psychiatry
PROC: GZHZZZZ Group Psychotherapy (ICD-10-PCS; principal; 2024-05-27)
PROC: GZ51ZZZ Individual Psychotherapy, Behavioral (ICD-10-PCS; 2024-05-27)
DX: F20.9 Schizophrenia, unspecified (principal); I95.9 Hypotension, unspecified; E87.1 Hypo-osmolality and hyponatremia; T18.9XXA Foreign body of alimentary tract, part unspecified, initial encounter; I10 Essential (primary) hypertension; K13.0 Diseases of lips; K59.00 Constipation, unspecified; F19.10 Other psychoactive substance abuse, uncomplicated; W44.8XXA Other foreign body entering into or through a natural orifice, initial encounter; E78.00 Pure hypercholesterolemia, unspecified; Z59.00 Homelessness unspecified; Z87.891 Personal history of nicotine dependence; Z79.899 Other long term (current) drug therapy; Y93.89 Activity, other specified; Y92.89 Other specified places as the place of occurrence of the external cause; Y99.8 Other external cause status
CPT/HCPCS: 36415; 74018; 74176; 80053; 80061; 83036; 83930; 83935; 84145; 84300; 85007; 85025; 85651; 87081; 93005

== ENCOUNTER 2024-06-16 12:36 | Inpatient (IN) | payer MEDICAID ==
[~2024-06-16] VITALS: Ht 175.3 cm; Wt 63.6 kg
[~2024-06-16 12:36] MED LIST changes: -ATOR20TA66 PO; +ATOR40TA72 PO; -DIVA500T9 PO; +LISI2.5T14 PO; -LISI5TAB22 PO; -LUMA42CA PO; +METO-395 PO; +NICO-907 BC; +OLAN20TA19 PO
[2024-06-16 13:17] LABS: BASOPHILS % (AUTO) 0.2 % (0-1); EOSINOPHILS # (AUTO) 0.5 X10'3 (0-0.9); EOSINOPHILS % (AUTO) 1.9 % (0-6); HEMATOCRIT 35.7 % (42.0-52.0); HEMOGLOBIN 11.8 g/dl (14.0-17.9); LYMPHOCYTES # (AUTO) 17.9 X10'3 (1.1-4.8); LYMPHOCYTES % (AUTO) 71.6 % (21-51); MEAN CORPUSCULAR HGB CONC 33.2 g/dL (33.0-36.5); MEAN CORPUSCULAR VOLUME 93.4 FL (78-98); MEAN PLATELET VOLUME 7.7 FL (7.4-10.4); MONOCYTES % (AUTO) 3.9 % (2-12); NEUTROPHILS # (AUTO) 5.6 X10'3 (1.8-7.7); NEUTROPHILS % (AUTO) 22.4 % (42-75); PLATELET COUNT 265 X10'3 (140-440); RED BLOOD COUNT 3.82 X10'6 (4.70-6.10); RED CELL DISTRIBUTION WIDTH 13.7 % (11.5-14.5)
[2024-06-16] MEDS: normal saline 1000ML IV soln IV ONE ×2 (13:23→14:49)
[2024-06-16 14:17] LABS: ALBUMIN 3.3 G/DL (3.4-5.0); ANION GAP 7 (8-16); BLOOD UREA NITROGEN 30 MG/DL (7-18); BUN/CREATININE RATIO 26.3 (10.0-20.0); CALCIUM 8.9 MG/DL (8.5-10.1); CHLORIDE 101 MMOL/L (99-107); CREATININE 1.14 MG/DL (0.60-1.10); GLUCOSE 138 MG/DL (70-104); MAGNESIUM 2.2 MG/DL (1.5-2.4); POTASSIUM 4.8 MMOL/L (3.5-5.1); SODIUM 134 MMOL/L (135-145); TOTAL CARBON DIOXIDE 26.3 MMOL/L (24-32); eCRCL 61 ML/MIN; eGFR 65 ML/MIN
[2024-06-16] MEDS: CefTRIAXone 2gm/D5W 50ml BAG 50 ML IV ONE (14:28)
[2024-06-16 14:30] LABS: BILIRUBIN,URINE NEGATIVE (Neg); CLARITY,URINE CLEAR (Clear); COLOR,URINE YELLOW (Yellow); GLUCOSE, URINE NEGATIVE (Neg); KETONES,URINE NEGATIVE (Neg); LEUKOCYTE ESTERASE ,URINE NEGATIVE (Neg); NITRITES, URINE NEGATIVE (Neg); OCCULT BLOOD,URINE NEGATIVE (Neg); PROTEIN,URINE 30 mg/dl (Neg); UROBILINOGEN,URINE 0.2 E.U/dL (0.2-1.0)
[2024-06-16 14:35] LABS: UA COLLECTION TYPE CLN CATCH MIDSTREAM
[2024-06-16 14:36] LABS: ALANINE AMINOTRANSFERASE 30 U/L (12-78); ALBUMIN/GLOBULIN RATIO 1.1 (1.1-1.5); ALKALINE PHOSPHATASE 93 IU/L (46-116); ASPARTATE AMINO TRANSFERASE 25 U/L (10-37); BILIRUBIN,DIRECT 0.1 MG/DL (0-0.3); BILIRUBIN,TOTAL 0.3 MG/DL (0.1-1.0); TOTAL PROTEIN 6.2 G/DL (6.4-8.2)
[2024-06-16 14:38] LABS: BACTERIA,URINE NONE SEEN /HPF (Neg); RBC,URINE NONE SEEN /HPF (0-2); WBC,URINE 0-4 /HPF (0-4)
[2024-06-16 14:39] LABS: MUCUS STRANDS NONE SEEN /LPF (Neg); SQUAMOUS EPITHELIAL CELL,UR NONE SEEN /LPF (FEW)
[2024-06-16 14:52] LABS: PLATELET ESTIMATE NORMAL; TOTAL CELLS COUNTED 100
[2024-06-16 14:53] LABS: SMUDGE CELLS 1+
[2024-06-16] MEDS ORDERED: mag hydrox/Alum hydrox/simeth 30ml oral suspension PO PRN (15:20)
[2024-06-16] MEDS ORDERED: potassium Cl 20 mEq SR tablet PO PRN ×2 (15:20)
[2024-06-16] MEDS ORDERED: HYDROcodone/acetaminophen 5mg/325mg tablet PO PRN (15:20)
[2024-06-16] MEDS ORDERED: ondansetron/PF 4mg/2ml inj IV PRN (15:20)
[2024-06-16] MEDS ORDERED: diphenhydrAMINE 25mg capsule PO PRN (15:20)
[2024-06-16] MEDS ORDERED: magnesium hydroxide 30ml (MOM) UD suspension PO PRN (15:20)
[2024-06-16] MEDS ORDERED: acetaminophen 325mg tablet PO PRN (15:20)
[2024-06-16] MEDS: normal saline 1000ml 1,000 ML IV SCH (16:08)
[2024-06-16] MEDS: enoxaparin 40mg/0.4ml syringe SUBCUT SCH (16:10)
[2024-06-16] MEDS ORDERED: temazepam 15mg capsule PO PRN (21:00)
[2024-06-17] MEDS: docusate sod 100mg capsule PO SCH (01:35)
[2024-06-17 03:20] LABS: EOSINOPHILS # (AUTO) 0.4 X10'3 (0-0.9); HEMOGLOBIN 10.7 g/dl (14.0-17.9); NEUTROPHILS # (AUTO) 5.9 X10'3 (1.8-7.7); RED CELL DISTRIBUTION WIDTH 13.8 % (11.5-14.5)
[2024-06-17 03:21] LABS: BASOPHILS % (AUTO) 0.1 % (0-1); EOSINOPHILS % (AUTO) 1.8 % (0-6); HEMATOCRIT 31.8 % (42.0-52.0); LYMPHOCYTES # (AUTO) 16.6 X10'3 (1.1-4.8); LYMPHOCYTES % (AUTO) 69.3 % (21-51); MEAN CORPUSCULAR HEMOGLOBIN 30.8 PG (27.0-31.0); MEAN CORPUSCULAR HGB CONC 33.6 g/dL (33.0-36.5); MEAN CORPUSCULAR VOLUME 91.9 FL (78-98); MEAN PLATELET VOLUME 7.8 FL (7.4-10.4); MONOCYTES % (AUTO) 4.3 % (2-12); NEUTROPHILS % (AUTO) 24.5 % (42-75); PLATELET COUNT 225 X10'3 (140-440); RED BLOOD COUNT 3.46 X10'6 (4.70-6.10); WHITE BLOOD COUNT 23.9 X10'3 (4.5-11.0)
[2024-06-17 03:43] LABS: ALANINE AMINOTRANSFERASE 26 U/L (12-78); ALBUMIN 2.7 G/DL (3.4-5.0); ALKALINE PHOSPHATASE 76 IU/L (46-116); ANION GAP 5 (8-16); ASPARTATE AMINO TRANSFERASE 18 U/L (10-37); BILIRUBIN,TOTAL 0.4 MG/DL (0.1-1.0); BLOOD UREA NITROGEN 19 MG/DL (7-18); BUN/CREATININE RATIO 23.2 (10.0-20.0); CALCIUM 8.1 MG/DL (8.5-10.1); CHLORIDE 106 MMOL/L (99-107); CREATININE 0.82 MG/DL (0.60-1.10); GLUCOSE 86 MG/DL (70-104); MAGNESIUM 1.9 MG/DL (1.5-2.4); PHOSPHORUS 2.9 MG/DL (2.3-4.5); POTASSIUM 3.9 MMOL/L (3.5-5.1); SODIUM 138 MMOL/L (135-145); TOTAL CARBON DIOXIDE 26.6 MMOL/L (24-32); TOTAL PROTEIN 5.4 G/DL (6.4-8.2); eCRCL 85 ML/MIN; eGFR > 90 ML/MIN
[2024-06-17 04:16] LABS: BURR CELLS FEW; PLATELET ESTIMATE NORMAL; SMUDGE CELLS 1+; TOTAL CELLS COUNTED 100
[2024-06-17 08:05] VITALS: RESP 16; O2SAT 95
[2024-06-17 10:42] VITALS: BP 132/78; PULSE 84; RESP 20; TEMP 97.8; O2SAT 98
[2024-06-17 11:51] LABS: URINE AMPHETAMINE SCREEN NEGATIVE (Neg); URINE BARBITUATE SCREEN NEGATIVE (Neg); URINE BENZODIAZEPINES SCREEN NEGATIVE (Neg); URINE CANNABINOID SCREEN NEGATIVE (Neg); URINE COCAINE SCREEN NEGATIVE (Neg); URINE METHADONE SCREEN NEGATIVE (Neg); URINE OPIATE SCREEN NEGATIVE (Neg); URINE PHENCYCLIDINE SCREEN NEGATIVE (Neg)
[2024-06-17] MEDS ORDERED: iohexol 350MG/ML 100ml bottle IV ONE ×2 (15:21→15:36)
[2024-06-17 18:00] VITALS: BP 146/83; PULSE 80; RESP 16; TEMP 97.6; O2SAT 99
[2024-06-17 20:00] VITALS: RESP 16; O2SAT 99
[2024-06-17 22:00] VITALS: BP 125/60; PULSE 73; RESP 16; TEMP 98.6; O2SAT 99
[2024-06-18 06:00] VITALS: BP 128/71; PULSE 77; RESP 18; TEMP 98.6; O2SAT 97
[2024-06-18 06:03] LABS: ALANINE AMINOTRANSFERASE 33 U/L (12-78); ALBUMIN 3.1 G/DL (3.4-5.0); ALKALINE PHOSPHATASE 95 IU/L (46-116); ANION GAP 8 (8-16); ASPARTATE AMINO TRANSFERASE 18 U/L (10-37); BILIRUBIN,TOTAL 0.2 MG/DL (0.1-1.0); BLOOD UREA NITROGEN 17 MG/DL (7-18); BUN/CREATININE RATIO 21.5 (10.0-20.0); CALCIUM 8.7 MG/DL (8.5-10.1); CHLORIDE 104 MMOL/L (99-107); CREATININE 0.79 MG/DL (0.60-1.10); GLUCOSE 88 MG/DL (70-104); MAGNESIUM 2.1 MG/DL (1.5-2.4); POTASSIUM 4.3 MMOL/L (3.5-5.1); SODIUM 141 MMOL/L (135-145); TOTAL CARBON DIOXIDE 29.2 MMOL/L (24-32); TOTAL PROTEIN 6.2 G/DL (6.4-8.2); eCRCL 88 ML/MIN; eGFR > 90 ML/MIN
[2024-06-18 06:06] LABS: BASOPHILS # (AUTO) 0.1 X10'3 (0-0.2); HEMOGLOBIN 11.2 g/dl (14.0-17.9); NEUTROPHILS # (AUTO) 4.3 X10'3 (1.8-7.7)
[2024-06-18 06:09] LABS: BASOPHILS % (AUTO) 0.3 % (0-1); EOSINOPHILS # (AUTO) 0.7 X10'3 (0-0.9); HEMATOCRIT 33.3 % (42.0-52.0); LYMPHOCYTES % (AUTO) 75.2 % (21-51); MEAN CORPUSCULAR HEMOGLOBIN 30.4 PG (27.0-31.0); MEAN CORPUSCULAR HGB CONC 33.6 g/dL (33.0-36.5); MEAN CORPUSCULAR VOLUME 90.6 FL (78-98); MEAN PLATELET VOLUME 7.9 FL (7.4-10.4); MONOCYTES # (AUTO) 0.8 X10'3 (0-0.9); MONOCYTES % (AUTO) 3.5 % (2-12); PLATELET COUNT 245 X10'3 (140-440); RED BLOOD COUNT 3.68 X10'6 (4.70-6.10); RED CELL DISTRIBUTION WIDTH 13.5 % (11.5-14.5)
[2024-06-18 09:30] VITALS: RESP 16; O2SAT 95
[2024-06-18 10:00] VITALS: BP 125/79; PULSE 91; RESP 18; TEMP 98.5; O2SAT 97
[2024-06-18] MEDS: piperacillin/tazo 4.5gm/100ml 100 ML IV SCH (13:46)
[2024-06-18 18:00] VITALS: BP 138/72; PULSE 90; RESP 15; TEMP 98.5; O2SAT 100
[2024-06-18 20:00] VITALS: RESP 15; O2SAT 100
[2024-06-18 22:00] VITALS: BP 129/78; PULSE 87; RESP 14; TEMP 98.3; O2SAT 97
[2024-06-19 06:46] VITALS: BP 138/80; PULSE 82; RESP 16; TEMP 97.7; O2SAT 97
[2024-06-19 06:51] LABS: BASOPHILS % (AUTO) 0.2 % (0-1); EOSINOPHILS # (AUTO) 0.6 X10'3 (0-0.9); HEMOGLOBIN 11.6 g/dl (14.0-17.9); LYMPHOCYTES # (AUTO) 15.3 X10'3 (1.1-4.8); RED CELL DISTRIBUTION WIDTH 13.8 % (11.5-14.5); WHITE BLOOD COUNT 19.9 X10'3 (4.5-11.0)
[2024-06-19 06:53] LABS: EOSINOPHILS % (AUTO) 2.9 % (0-6); HEMATOCRIT 34.5 % (42.0-52.0); MEAN CORPUSCULAR HEMOGLOBIN 30.5 PG (27.0-31.0); MEAN CORPUSCULAR HGB CONC 33.7 g/dL (33.0-36.5); MEAN CORPUSCULAR VOLUME 90.5 FL (78-98); MEAN PLATELET VOLUME 7.6 FL (7.4-10.4); MONOCYTES # (AUTO) 0.6 X10'3 (0-0.9); MONOCYTES % (AUTO) 3.1 % (2-12); NEUTROPHILS # (AUTO) 3.3 X10'3 (1.8-7.7); NEUTROPHILS % (AUTO) 16.8 % (42-75); PLATELET COUNT 243 X10'3 (140-440); RED BLOOD COUNT 3.81 X10'6 (4.70-6.10)
[2024-06-19 06:54] LABS: ALANINE AMINOTRANSFERASE 28 U/L (12-78); ALBUMIN 3.1 G/DL (3.4-5.0); ALBUMIN/GLOBULIN RATIO 0.9 (1.1-1.5); ALKALINE PHOSPHATASE 90 IU/L (46-116); ANION GAP 8 (8-16); ASPARTATE AMINO TRANSFERASE 20 U/L (10-37); BILIRUBIN,TOTAL 0.3 MG/DL (0.1-1.0); BLOOD UREA NITROGEN 18 MG/DL (7-18); BUN/CREATININE RATIO 21.4 (10.0-20.0); CHLORIDE 103 MMOL/L (99-107); CREATININE 0.84 MG/DL (0.60-1.10); GLUCOSE 99 MG/DL (70-104); MAGNESIUM 2.3 MG/DL (1.5-2.4); PHOSPHORUS 4.1 MG/DL (2.3-4.5); SODIUM 139 MMOL/L (135-145); TOTAL PROTEIN 6.4 G/DL (6.4-8.2); eCRCL 83 ML/MIN; eGFR > 90 ML/MIN
[2024-06-19 07:35] LABS: TOTAL CELLS COUNTED 100
[2024-06-19 07:36] LABS: BURR CELLS FEW; PLATELET ESTIMATE NORMAL; SMUDGE CELLS FEW
[2024-06-19 09:17] VITALS: RESP 16; O2SAT 95
[2024-06-19 10:00] VITALS: BP 122/80; PULSE 104; RESP 16; TEMP 98.4; O2SAT 100
[2024-06-19 19:00] VITALS: BP 126/78; PULSE 94; RESP 15; TEMP 97.5; O2SAT 97
[2024-06-19 22:00] VITALS: BP 123/89; PULSE 86; RESP 14; TEMP 97.7; O2SAT 96
[2024-06-20] VITALS (8 sets, daily range): BP systolic 108–141; BP diastolic 70–90; PULSE 78–98; RESP 14–18; TEMP 96.9–98.3; O2SAT 96–99
[2024-06-20 05:07] LABS: BASOPHILS % (AUTO) 0.2 % (0-1); EOSINOPHILS # (AUTO) 0.7 X10'3 (0-0.9); HEMOGLOBIN 12.2 g/dl (14.0-17.9)
[2024-06-20 05:08] LABS: BASOPHILS # (AUTO) 0.1 X10'3 (0-0.2); EOSINOPHILS % (AUTO) 3.2 % (0-6); HEMATOCRIT 37.2 % (42.0-52.0); LYMPHOCYTES # (AUTO) 16.2 X10'3 (1.1-4.8); LYMPHOCYTES % (AUTO) 74.2 % (21-51); MEAN CORPUSCULAR HEMOGLOBIN 30.3 PG (27.0-31.0); MEAN CORPUSCULAR HGB CONC 32.8 g/dL (33.0-36.5); MEAN CORPUSCULAR VOLUME 92.3 FL (78-98); MEAN PLATELET VOLUME 7.4 FL (7.4-10.4); MONOCYTES # (AUTO) 0.9 X10'3 (0-0.9); MONOCYTES % (AUTO) 4.1 % (2-12); NEUTROPHILS % (AUTO) 18.3 % (42-75); PLATELET COUNT 254 X10'3 (140-440); RED BLOOD COUNT 4.03 X10'6 (4.70-6.10); RED CELL DISTRIBUTION WIDTH 13.2 % (11.5-14.5); WHITE BLOOD COUNT 21.8 X10'3 (4.5-11.0)
[2024-06-20 05:31] LABS: ALANINE AMINOTRANSFERASE 34 U/L (12-78); ALBUMIN 3.2 G/DL (3.4-5.0); ALBUMIN/GLOBULIN RATIO 0.9 (1.1-1.5); ALKALINE PHOSPHATASE 92 IU/L (46-116); ANION GAP 7 (8-16); ASPARTATE AMINO TRANSFERASE 18 U/L (10-37); BILIRUBIN,TOTAL 0.3 MG/DL (0.1-1.0); BLOOD UREA NITROGEN 20 MG/DL (7-18); CALCIUM 9.2 MG/DL (8.5-10.1); CHLORIDE 103 MMOL/L (99-107); CREATININE 0.91 MG/DL (0.60-1.10); GLUCOSE 91 MG/DL (70-104); MAGNESIUM 2.2 MG/DL (1.5-2.4); PHOSPHORUS 4.8 MG/DL (2.3-4.5); POTASSIUM 4.6 MMOL/L (3.5-5.1); SODIUM 139 MMOL/L (135-145); TOTAL CARBON DIOXIDE 29.3 MMOL/L (24-32); TOTAL PROTEIN 6.7 G/DL (6.4-8.2); eCRCL 77 ML/MIN; eGFR 85 ML/MIN
[2024-06-20 05:45] LABS: LYMPHOCYTES % (MANUAL) 68 % (21-51); NEUTROPHILS % (MANUAL) 21 % (42-75); TOTAL CELLS COUNTED 100
[2024-06-20 05:46] LABS: BURR CELLS 1+; EOSINOPHILS % (MANUAL) 3 % (0-6); MONOCYTES % (MANUAL) 8 % (2-12); PLATELET ESTIMATE NORMAL; SMUDGE CELLS FEW
[2024-06-20] MEDS: mupirocin 2% nasal ointment 1gm UD NS STA (17:54)
[2024-06-20] MEDS: mupirocin 2% nasal ointment 1gm UD NS SCH (20:06)
[2024-06-21 06:00] VITALS: BP 111/78; PULSE 84; RESP 12; TEMP 98; O2SAT 97
[2024-06-21 06:13] LABS: BASOPHILS % (AUTO) 0.2 % (0-1); MEAN CORPUSCULAR HEMOGLOBIN 30.6 PG (27.0-31.0); MEAN CORPUSCULAR HGB CONC 33.3 g/dL (33.0-36.5)
[2024-06-21 06:16] LABS: EOSINOPHILS # (AUTO) 0.6 X10'3 (0-0.9); EOSINOPHILS % (AUTO) 2.8 % (0-6); HEMATOCRIT 37.7 % (42.0-52.0); HEMOGLOBIN 12.5 g/dl (14.0-17.9); LYMPHOCYTES # (AUTO) 15.6 X10'3 (1.1-4.8); LYMPHOCYTES % (AUTO) 69.4 % (21-51); MEAN CORPUSCULAR VOLUME 91.8 FL (78-98); MEAN PLATELET VOLUME 7.5 FL (7.4-10.4); MONOCYTES % (AUTO) 4.4 % (2-12); NEUTROPHILS # (AUTO) 5.2 X10'3 (1.8-7.7); NEUTROPHILS % (AUTO) 23.2 % (42-75); PLATELET COUNT 255 X10'3 (140-440); RED CELL DISTRIBUTION WIDTH 13.7 % (11.5-14.5); WHITE BLOOD COUNT 22.5 X10'3 (4.5-11.0)
[2024-06-21 06:19] LABS: ALANINE AMINOTRANSFERASE 33 U/L (12-78); ALBUMIN 3.4 G/DL (3.4-5.0); ALKALINE PHOSPHATASE 89 IU/L (46-116); ANION GAP 8 (8-16); ASPARTATE AMINO TRANSFERASE 17 U/L (10-37); BILIRUBIN,TOTAL 0.2 MG/DL (0.1-1.0); BLOOD UREA NITROGEN 17 MG/DL (7-18); BUN/CREATININE RATIO 26.6 (10.0-20.0); CALCIUM 9.2 MG/DL (8.5-10.1); CHLORIDE 102 MMOL/L (99-107); CREATININE 0.64 MG/DL (0.60-1.10); GLUCOSE 90 MG/DL (70-104); MAGNESIUM 2.3 MG/DL (1.5-2.4); PHOSPHORUS 4.2 MG/DL (2.3-4.5); POTASSIUM 4.3 MMOL/L (3.5-5.1); SODIUM 137 MMOL/L (135-145); TOTAL CARBON DIOXIDE 27.5 MMOL/L (24-32); TOTAL PROTEIN 6.9 G/DL (6.4-8.2); eCRCL 109 ML/MIN; eGFR > 90 ML/MIN
[2024-06-21 10:00] VITALS: BP_SYST 108; BP_SYST 111; BP_SYST 115; BP_SYST 136; BP_DIAS 77; BP_DIAS 81; BP_DIAS 83; BP_DIAS 85; PULSE 101; PULSE 118; PULSE 92; PULSE 96; RESP 16; TEMP 98.2; O2SAT 98
[2024-06-21 11:41] LABS: BILIRUBIN,URINE NEGATIVE (Neg); CLARITY,URINE CLEAR (Clear); COLOR,URINE YELLOW (Yellow); GLUCOSE, URINE NEGATIVE (Neg); KETONES,URINE NEGATIVE (Neg); LEUKOCYTE ESTERASE ,URINE NEGATIVE (Neg); NITRITES, URINE NEGATIVE (Neg); OCCULT BLOOD,URINE NEGATIVE (Neg); PROTEIN,URINE NEGATIVE (Neg); UROBILINOGEN,URINE 0.2 E.U/dL (0.2-1.0)
[2024-06-21 11:49] LABS: UA COLLECTION TYPE URINAL
[2024-06-21] MEDS: metoprolol succinate 25mg (24-HOUR) SR. Tablet PO ONE (17:22)
[2024-06-21 19:11] VITALS: BP 130/81; PULSE 90; RESP 18; TEMP 97.8; O2SAT 98
[2024-06-21] MEDS ORDERED: fluvoxamine 25 MG tablet PO SCH (20:00)
[2024-06-21] MEDS ORDERED: OLANZapine 5mg rapidly disint. tablet PO SCH (21:00)
[2024-06-21] MEDS ORDERED: OLANZAPINE 5 MG TABLET PO SCH (21:00)
[2024-06-21] MEDS ORDERED: OLAN5TAB3 PO (21:28)
[2024-06-21] MEDS ORDERED: LOP12.5T PO (21:28)
[2024-06-21] MEDS ORDERED: MULT-1085 PO (21:28)
[2024-06-21] MEDS ORDERED: METO-395 PO (21:28)
[2024-06-21] MEDS ORDERED: FLUV100T21 PO (21:28)
[2024-06-21] MEDS ORDERED: OLAN10TA3 PO (21:28)
[2024-06-21] MEDS ORDERED: ATOR40TA14 PO (21:28)
[2024-06-22] MEDS ORDERED: atorvastatin 20mg tablet PO SCH (08:00)
== END 2024-06-21 19:30 | DRG 720 ==
LOC: ER 12:36 → ED HOLD 15:36 → SUR 3N 06-17 07:53
PROVIDERS: ADMIT Registered Nurse Psychiatric/Mental Health; ATTEND Registered Nurse Psychiatric/Mental Health
PROC: B3251ZZ Computerized Tomography (CT Scan) of Bilateral Common Carotid Arteries using Low Osmolar Contrast (ICD-10-PCS; principal; 2024-06-17)
PROC: B32G1ZZ Computerized Tomography (CT Scan) of Bilateral Vertebral Arteries using Low Osmolar Contrast (ICD-10-PCS; 2024-06-17)
PROC: B32R1ZZ Computerized Tomography (CT Scan) of Intracranial Arteries using Low Osmolar Contrast (ICD-10-PCS; 2024-06-17)
PROC: B3281ZZ Computerized Tomography (CT Scan) of Bilateral Internal Carotid Arteries using Low Osmolar Contrast (ICD-10-PCS; 2024-06-17)
DX: A41.9 Sepsis, unspecified organism (principal); G93.41 Metabolic encephalopathy; N17.9 Acute kidney failure, unspecified; I95.1 Orthostatic hypotension; E86.0 Dehydration; I10 Essential (primary) hypertension; F19.10 Other psychoactive substance abuse, uncomplicated; F20.9 Schizophrenia, unspecified; F17.200 Nicotine dependence, unspecified, uncomplicated; Z79.899 Other long term (current) drug therapy; Z85.6 Personal history of leukemia
CPT/HCPCS: 36415; 70450; 70496; 70498; 71045; 80048; 80053; 80076; 80305; 81001; 81003; 83605; 83735; 84100; 84145; 84484; 85007; 85025; 87040; 87081; 93005; 93308; 93880; 97116; 97161; 97530; 99285; A6258; G0378; J0696; J1650; J2543; J7030; Q9967

== ENCOUNTER 2024-06-21 16:31 | Inpatient (IN) | payer MEDICAID ==
[~2024-06-21] VITALS: Ht 157.5 cm; Wt 86.4 kg
[2024-06-21 20:00] VITALS: BP 117/76; PULSE 91; RESP 16; TEMP 98.3; O2SAT 98
[2024-06-21] MEDS ORDERED: acetaminophen 325mg tablet PO PRN ×2 (20:45→20:50)
[2024-06-21] MEDS ORDERED: mag hydrox/Alum hydrox/simeth 30ml oral suspension PO PRN (20:50)
[2024-06-21] MEDS ORDERED: magnesium hydroxide 30ml (MOM) UD suspension PO PRN (20:55)
[2024-06-21] MEDS ORDERED: OLAN10TA3 PO (21:28)
[2024-06-21] MEDS ORDERED: OLAN5TAB3 PO (21:28)
[2024-06-21] MEDS ORDERED: FLUV100T21 PO (21:28)
[2024-06-21] MEDS ORDERED: ATOR40TA14 PO (21:28)
[2024-06-21] MEDS ORDERED: METO-395 PO (21:28)
[2024-06-21] MEDS ORDERED: MULT-1085 PO (21:28)
[2024-06-21] MEDS ORDERED: LOP12.5T PO (21:28)
[2024-06-21 22:31] VITALS: RESP 16; O2SAT 98
[2024-06-21] MEDS: olanzapine 10mg tablet PO SCH (22:59)
[2024-06-21] MEDS: OLANZAPINE 5 MG TABLET PO SCH (22:59)
[2024-06-22 07:00] VITALS: BP 108/74; PULSE 87; RESP 16; TEMP 98.4; O2SAT 99
[2024-06-22] MEDS: metoprolol succinate 25mg (24-HOUR) SR. Tablet PO SCH (08:14)
[2024-06-22] MEDS: fluvoxamine 25 MG tablet PO SCH (08:14)
[2024-06-22] MEDS: multivitamins, therapeutics tablet PO SCH (08:15)
[2024-06-22] MEDS: atorvastatin 20mg tablet PO SCH (08:15)
[2024-06-22 10:08] LABS: CHOL/HDL RATIO 3.1 (0.00-4.99); CHOLESTEROL 168 MG/DL (0-200); HDL CHOLESTEROL 55 MG/DL (35-60); LDL CHOLESTEROL 98 MG/DL (50-100); TRIGLYCERIDES 113 MG/DL (20-135)
[2024-06-22 10:55] LABS: HEMOGLOBIN A1C 5.4 % (4.5-6.2)
[2024-06-22 19:00] VITALS: RESP 16; O2SAT 99
[2024-06-22 20:00] VITALS: BP 110/75; PULSE 91; RESP 14; TEMP 98.3; O2SAT 98
[2024-06-23 07:00] VITALS: BP 127/78; PULSE 78; RESP 16; TEMP 97.2; O2SAT 98
[2024-06-23 19:00] VITALS: RESP 12; O2SAT 99
[2024-06-23 20:00] VITALS: BP 106/66; PULSE 87; RESP 12; TEMP 98.5; O2SAT 98
[2024-06-24 07:00] VITALS: RESP 15; O2SAT 98
[2024-06-24 08:00] VITALS: BP 129/72; PULSE 86; RESP 15; TEMP 97.7; O2SAT 98
[2024-06-24 19:00] VITALS: RESP 19; O2SAT 100
[2024-06-24 19:33] VITALS: BP 115/75; PULSE 84; RESP 16; TEMP 97.5; O2SAT 100
[2024-06-25 07:00] VITALS: RESP 14; O2SAT 99
[2024-06-25 08:00] VITALS: BP 140/78; PULSE 77; RESP 15; TEMP 97.8; O2SAT 99
[2024-06-25 19:25] VITALS: BP 107/68; PULSE 87; RESP 16; TEMP 97.5; O2SAT 98
[2024-06-25 19:32] VITALS: RESP 16; O2SAT 98
[2024-06-26 07:00] VITALS: BP 120/68; PULSE 76; RESP 16; TEMP 97.5; O2SAT 99
[2024-06-26 19:30] VITALS: RESP 16; O2SAT 98
[2024-06-26 20:00] VITALS: BP 113/76; PULSE 86; RESP 16; TEMP 97.8; O2SAT 98
[2024-06-27 07:00] VITALS: BP 132/81; PULSE 75; RESP 18; TEMP 97.3; O2SAT 100
[2024-06-27 19:00] VITALS: RESP 18; O2SAT 99
[2024-06-27 20:00] VITALS: BP 112/78; PULSE 90; RESP 18; TEMP 98.8; O2SAT 99
[2024-06-28 07:00] VITALS: BP 120/77; PULSE 75; RESP 16; TEMP 98.2; O2SAT 95
[2024-06-28 19:00] VITALS: BP 148/77; PULSE 79; RESP 16; RESP 19; TEMP 97.2; O2SAT 95; O2SAT 97
[2024-06-29 07:00] VITALS: BP 113/72; PULSE 68; RESP 16; TEMP 96.4; O2SAT 98
[2024-06-29 19:00] VITALS: RESP 20; O2SAT 98
[2024-06-29 20:00] VITALS: BP 99/69; PULSE 94; RESP 20; TEMP 98.4; O2SAT 98
[2024-06-30 07:00] VITALS: BP 122/70; PULSE 80; RESP 16; TEMP 97.5; O2SAT 97
[2024-06-30 19:00] VITALS: RESP 18; O2SAT 100
[2024-06-30 20:00] VITALS: BP 113/78; PULSE 103; RESP 18; TEMP 96.7; O2SAT 100
[2024-07-01 14:48] VITALS: BP 110/72; PULSE 72; RESP 12; TEMP 97.5; O2SAT 96
[2024-07-01 19:00] VITALS: RESP 12; O2SAT 100
[2024-07-01 19:58] VITALS: BP 104/66; PULSE 82; RESP 12; TEMP 97.5; O2SAT 100
[2024-07-02 07:30] VITALS: BP 121/75; PULSE 77; RESP 16; TEMP 98.5; O2SAT 98
[2024-07-02 19:39] VITALS: BP 102/70; PULSE 86; RESP 17; TEMP 96.5; O2SAT 97
[2024-07-02 19:41] VITALS: RESP 17; O2SAT 97
[2024-07-03 08:00] VITALS: BP 104/61; PULSE 72; RESP 16; TEMP 97.9; O2SAT 100
[2024-07-03 19:00] VITALS: BP 105/61; PULSE 80; RESP 16; RESP 18; TEMP 97.4; O2SAT 97
[2024-07-03 20:00] VITALS: BP 105/61; PULSE 80; RESP 16; TEMP 97.4; O2SAT 97
[2024-07-04 07:41] VITALS: BP 124/77; PULSE 82; RESP 15; TEMP 96.5; O2SAT 96
[2024-07-04 19:00] VITALS: BP 115/76; PULSE 85; RESP 16; TEMP 97.8; O2SAT 85; O2SAT 99
[2024-07-05 07:27] VITALS: BP 111/67; PULSE 68; RESP 16; TEMP 98; O2SAT 97
[2024-07-05 19:00] VITALS: RESP 18; O2SAT 99
[2024-07-05 19:53] VITALS: BP 109/66; PULSE 75; RESP 18; TEMP 98; O2SAT 99
[2024-07-06 07:00] VITALS: RESP 18; O2SAT 97
[2024-07-06 08:00] VITALS: BP 126/73; PULSE 88; RESP 18; TEMP 98.2; O2SAT 97
[2024-07-06 19:00] VITALS: RESP 16; O2SAT 97
[2024-07-06 20:00] VITALS: BP 107/64; PULSE 85; RESP 16; TEMP 97.2; O2SAT 97
[2024-07-07 07:30] VITALS: BP 100/76; PULSE 69; RESP 16; TEMP 97.4; O2SAT 96
[2024-07-07 19:00] VITALS: BP 113/69; PULSE 86; RESP 18; TEMP 98.2; O2SAT 97
[2024-07-08 07:00] VITALS: RESP 18; O2SAT 99
[2024-07-08 08:00] VITALS: BP 130/89; PULSE 79; RESP 18; TEMP 98.5; O2SAT 99
[2024-07-08] MEDS ORDERED: fluvoxamine 25 MG tablet PO SCH (08:10)
[2024-07-08] MEDS: fluvoxamine 25 MG tablet PO SCH (09:40)
[2024-07-08 19:00] VITALS: BP 109/59; PULSE 92; RESP 16; TEMP 98.3; O2SAT 97
[2024-07-09 07:00] VITALS: RESP 18; O2SAT 99
[2024-07-09 08:00] VITALS: BP 113/80; PULSE 63; RESP 16; TEMP 97.4; O2SAT 98
[2024-07-09 20:58] VITALS: BP 108/62; PULSE 90; RESP 20; TEMP 97.6; O2SAT 98
[2024-07-10 08:00] VITALS: BP 106/71; PULSE 69; RESP 16; TEMP 97; O2SAT 97
[2024-07-10 09:46] VITALS: RESP 16; O2SAT 97
[2024-07-10 19:00] VITALS: BP 115/68; PULSE 83; RESP 18; TEMP 98.3; O2SAT 99
[2024-07-11 07:00] VITALS: RESP 16; O2SAT 98
[2024-07-11 08:00] VITALS: BP 117/77; PULSE 73; RESP 16; TEMP 98.3; O2SAT 98
[2024-07-11 19:00] VITALS: BP 105/63; PULSE 79; RESP 16; TEMP 98.2; O2SAT 97
[2024-07-12 07:00] VITALS: RESP 14; O2SAT 97
[2024-07-12 08:00] VITALS: BP 137/79; PULSE 68; RESP 14; TEMP 97.5; O2SAT 97
[2024-07-12 19:00] VITALS: RESP 16; O2SAT 99
[2024-07-12 20:00] VITALS: BP 103/71; PULSE 91; RESP 16; TEMP 97.6; O2SAT 99
[2024-07-13 08:19] VITALS: BP 113/74; PULSE 74; RESP 16; TEMP 98.4; O2SAT 95
[2024-07-13 10:10] VITALS: RESP 16; O2SAT 95
[2024-07-13 19:00] VITALS: RESP 16; O2SAT 98
[2024-07-13 20:00] VITALS: BP 127/76; PULSE 89; RESP 16; TEMP 97.9; O2SAT 98
[2024-07-14 07:45] VITALS: RESP 16; O2SAT 97
[2024-07-14 08:36] VITALS: BP 125/79; PULSE 72; RESP 16; TEMP 97.5; O2SAT 98
[2024-07-14 19:00] VITALS: RESP 18; O2SAT 97
[2024-07-14 20:00] VITALS: BP 102/63; PULSE 84; RESP 18; TEMP 97.9; O2SAT 97
[2024-07-15 07:30] VITALS: BP 114/73; PULSE 72; RESP 16; TEMP 97.1; O2SAT 95
[2024-07-15 19:00] VITALS: RESP 20; O2SAT 97
[2024-07-15 20:00] VITALS: BP 119/73; PULSE 99; RESP 20; TEMP 97.6; O2SAT 97
[2024-07-16 07:45] VITALS: BP 121/78; PULSE 71; RESP 16; TEMP 97.8; O2SAT 97
[2024-07-16 19:40] VITALS: RESP 16; O2SAT 97
[2024-07-16 20:00] VITALS: BP 109/66; PULSE 78; RESP 16; TEMP 97.2; O2SAT 97
[2024-07-17 07:54] VITALS: BP 110/76; PULSE 69; RESP 15; TEMP 97.8; O2SAT 97
[2024-07-17 09:05] LABS: BASOPHILS % (AUTO) 0.1 % (0-1); EOSINOPHILS # (AUTO) 0.5 X10'3 (0-0.9); NEUTROPHILS % (AUTO) 20.6 % (42-75); WHITE BLOOD COUNT 19.2 X10'3 (4.5-11.0)
[2024-07-17 09:07] LABS: EOSINOPHILS % (AUTO) 2.6 % (0-6); HEMATOCRIT 34.6 % (42.0-52.0); HEMOGLOBIN 11.7 g/dl (14.0-17.9); LYMPHOCYTES # (AUTO) 13.8 X10'3 (1.1-4.8); MEAN CORPUSCULAR HGB CONC 33.9 g/dL (33.0-36.5); MEAN CORPUSCULAR VOLUME 91.3 FL (78-98); MEAN PLATELET VOLUME 8.2 FL (7.4-10.4); MONOCYTES # (AUTO) 0.9 X10'3 (0-0.9); MONOCYTES % (AUTO) 4.7 % (2-12); PLATELET COUNT 202 X10'3 (140-440); RED BLOOD COUNT 3.79 X10'6 (4.70-6.10); RED CELL DISTRIBUTION WIDTH 13.3 % (11.5-14.5)
[2024-07-17 09:16] LABS: ALANINE AMINOTRANSFERASE 53 U/L (12-78); ALBUMIN 3.2 G/DL (3.4-5.0); ALBUMIN/GLOBULIN RATIO 1.1 (1.1-1.5); ALKALINE PHOSPHATASE 94 IU/L (46-116); ANION GAP 6 (8-16); ASPARTATE AMINO TRANSFERASE 23 U/L (10-37); BILIRUBIN,TOTAL 0.3 MG/DL (0.1-1.0); BLOOD UREA NITROGEN 22 MG/DL (7-18); BUN/CREATININE RATIO 22.7 (10.0-20.0); CALCIUM 8.7 MG/DL (8.5-10.1); CHLORIDE 101 MMOL/L (99-107); CREATININE 0.97 MG/DL (0.60-1.10); GLUCOSE 158 MG/DL (70-104); SODIUM 136 MMOL/L (135-145); TOTAL CARBON DIOXIDE 29.2 MMOL/L (24-32); TOTAL PROTEIN 6.2 G/DL (6.4-8.2); eCRCL 62 ML/MIN; eGFR 79 ML/MIN
[2024-07-17 10:37] LABS: PLATELET ESTIMATE NORMAL; TOTAL CELLS COUNTED 100
[2024-07-17 10:45] LABS: SMUDGE CELLS 2+
[2024-07-17 19:00] VITALS: BP 115/68; PULSE 81; RESP 16; TEMP 98.2; O2SAT 98
[2024-07-18 07:00] VITALS: RESP 18; O2SAT 94
[2024-07-18 08:00] VITALS: BP 107/65; PULSE 66; RESP 18; TEMP 97.2; O2SAT 94
[2024-07-18 19:00] VITALS: BP 127/74; PULSE 83; RESP 16; TEMP 98; O2SAT 97
[2024-07-18 19:30] VITALS: RESP 16; O2SAT 97
[2024-07-18 22:17] VITALS: RESP 16; O2SAT 97
[2024-07-19 07:00] VITALS: RESP 14; O2SAT 96
[2024-07-19 08:00] VITALS: BP 126/77; PULSE 75; RESP 14; TEMP 98.1; O2SAT 96
[2024-07-19 19:00] VITALS: RESP 16; O2SAT 96
[2024-07-19 20:00] VITALS: BP 98/70; PULSE 96; RESP 16; TEMP 97.6; O2SAT 100
[2024-07-20 08:00] VITALS: RESP 14; O2SAT 94
[2024-07-20 08:10] VITALS: BP 121/60; PULSE 68; RESP 14; TEMP 97.7; O2SAT 94
[2024-07-20 19:00] VITALS: RESP 16; O2SAT 100
[2024-07-20 19:27] VITALS: BP 108/69; PULSE 81; RESP 16; TEMP 97.8; O2SAT 100
[2024-07-21 07:00] VITALS: RESP 16; O2SAT 97
[2024-07-21 08:00] VITALS: BP 111/69; PULSE 69; RESP 16; TEMP 97.8; O2SAT 97
[2024-07-21 10:57] LABS: FERRITIN 98 NG/ML (26-388)
[2024-07-21 12:33] LABS: % IRON SATURATION 20 % (11-46); IRON 73 UG/DL (53-167); TOTAL IRON BINDING CAPACITY 364 UG/DL (259-388)
[2024-07-21 15:39] LABS: OCCULT BLOOD STOOL NEGATIVE (Neg)
[2024-07-21 19:00] VITALS: BP 120/70; PULSE 79; RESP 16; TEMP 97.3; O2SAT 97
[2024-07-22 07:00] VITALS: BP 109/72; PULSE 69; RESP 12; RESP 14; TEMP 97.2; O2SAT 97
[2024-07-22 19:00] VITALS: BP 106/65; PULSE 82; RESP 18; TEMP 97.3; O2SAT 97
[2024-07-23 10:14] VITALS: BP 88/55; PULSE 77; RESP 16; TEMP 98.3; O2SAT 95
[2024-07-23 11:51] VITALS: RESP 16; O2SAT 99
[2024-07-23 19:00] VITALS: BP 117/73; PULSE 81; RESP 16; TEMP 98.4; O2SAT 98
[2024-07-24 07:30] VITALS: BP 160/76; PULSE 68; RESP 12; TEMP 98; O2SAT 97
[2024-07-24 19:00] VITALS: BP 114/79; PULSE 95; RESP 14; TEMP 97.9; O2SAT 97
[2024-07-24 20:00] VITALS: PULSE 88
[2024-07-25 07:30] VITALS: BP 99/76; PULSE 69; RESP 20; TEMP 97.8; O2SAT 97
[2024-07-25 19:00] VITALS: RESP 14; O2SAT 98
[2024-07-25 20:00] VITALS: BP 100/64; PULSE 80; RESP 18; TEMP 97.9; O2SAT 98
[2024-07-26 07:30] VITALS: BP 111/66; PULSE 72; RESP 16; TEMP 97.6; O2SAT 95
[2024-07-26 19:00] VITALS: RESP 14; O2SAT 95
[2024-07-26 19:36] VITALS: BP 107/74; PULSE 80; RESP 15; TEMP 97.3; O2SAT 99
[2024-07-27 07:20] VITALS: RESP 18; O2SAT 100
[2024-07-27 08:00] VITALS: BP 130/70; PULSE 82; RESP 18; TEMP 97.6; O2SAT 100
[2024-07-27 08:52] LABS: HEMATOCRIT 34.6 % (42.0-52.0); MONOCYTES # (AUTO) 0.6 X10'3 (0-0.9); NEUTROPHILS # (AUTO) 3.8 X10'3 (1.8-7.7)
[2024-07-27 08:54] LABS: BASOPHILS # (AUTO) 0.1 X10'3 (0-0.2); BASOPHILS % (AUTO) 0.3 % (0-1); EOSINOPHILS # (AUTO) 0.5 X10'3 (0-0.9); EOSINOPHILS % (AUTO) 2.3 % (0-6); HEMOGLOBIN 11.6 g/dl (14.0-17.9); LYMPHOCYTES # (AUTO) 14.8 X10'3 (1.1-4.8); LYMPHOCYTES % (AUTO) 75.1 % (21-51); MEAN CORPUSCULAR HEMOGLOBIN 30.5 PG (27.0-31.0); MEAN CORPUSCULAR HGB CONC 33.7 g/dL (33.0-36.5); MEAN CORPUSCULAR VOLUME 90.6 FL (78-98); MEAN PLATELET VOLUME 7.7 FL (7.4-10.4); MONOCYTES % (AUTO) 3.1 % (2-12); NEUTROPHILS % (AUTO) 19.2 % (42-75); PLATELET COUNT 205 X10'3 (140-440); RED BLOOD COUNT 3.82 X10'6 (4.70-6.10); RED CELL DISTRIBUTION WIDTH 13.2 % (11.5-14.5); WHITE BLOOD COUNT 19.8 X10'3 (4.5-11.0)
[2024-07-27 09:24] LABS: PLATELET ESTIMATE NORMAL; SMUDGE CELLS FEW; TOTAL CELLS COUNTED 100
[2024-07-27 19:00] VITALS: RESP 16; O2SAT 99
[2024-07-27 20:00] VITALS: BP 111/71; PULSE 81; RESP 16; TEMP 97.1; O2SAT 97
[2024-07-28 07:00] VITALS: RESP 15; O2SAT 94
[2024-07-28 08:00] VITALS: BP 130/83; PULSE 83; RESP 15; TEMP 98.2; O2SAT 94
[2024-07-28 19:00] VITALS: RESP 16; O2SAT 96
[2024-07-28 20:00] VITALS: BP 120/76; PULSE 94; RESP 16; TEMP 96.2; O2SAT 96
[2024-07-29 07:00] VITALS: BP 121/78; PULSE 68; RESP 12; TEMP 97.4; O2SAT 97
[2024-07-29 19:00] VITALS: RESP 18; O2SAT 99
[2024-07-29 20:00] VITALS: BP 115/67; PULSE 82; RESP 18; TEMP 97.9; O2SAT 99
[2024-07-30 07:30] VITALS: BP 109/74; PULSE 72; RESP 16; TEMP 97.8; O2SAT 98
[2024-07-30 19:28] VITALS: BP 115/78; PULSE 94; RESP 18; TEMP 98.1; O2SAT 99
[2024-07-31 07:30] VITALS: BP 103/72; PULSE 73; RESP 16; TEMP 98; O2SAT 97
[2024-07-31 19:00] VITALS: BP 111/71; PULSE 89; RESP 16; TEMP 97.6; O2SAT 98
[2024-08-01 08:00] VITALS: BP 108/71; PULSE 71; RESP 16; TEMP 98.4; O2SAT 98
[2024-08-01 20:00] VITALS: BP 116/65; PULSE 89; RESP 16; TEMP 97.1; O2SAT 97
[2024-08-02 07:00] VITALS: RESP 18; O2SAT 97
[2024-08-02 08:00] VITALS: BP 124/77; PULSE 74; RESP 18; TEMP 98.2; O2SAT 97
[2024-08-02 19:00] VITALS: RESP 16; O2SAT 98
[2024-08-02 19:37] VITALS: BP 104/68; PULSE 78; RESP 16; TEMP 96.3; O2SAT 98
[2024-08-03 07:00] VITALS: RESP 12; O2SAT 96
[2024-08-03 08:00] VITALS: BP 126/65; PULSE 67; RESP 12; TEMP 97.3; O2SAT 96
[2024-08-03 19:00] VITALS: RESP 16; O2SAT 99
[2024-08-03 20:00] VITALS: BP 113/70; PULSE 78; RESP 16; TEMP 97.5; O2SAT 99
[2024-08-04 07:00] VITALS: RESP 16; O2SAT 95
[2024-08-04 08:00] VITALS: BP 101/65; PULSE 61; RESP 16; TEMP 97; O2SAT 95
[2024-08-04 19:00] VITALS: RESP 16; O2SAT 97
[2024-08-04 19:32] VITALS: BP 106/78; PULSE 94; RESP 16; TEMP 98.7; O2SAT 97
[2024-08-05 07:00] VITALS: RESP 18; O2SAT 94
[2024-08-05 08:00] VITALS: BP 120/78; PULSE 75; RESP 18; TEMP 98.3; O2SAT 94
[2024-08-05 19:26] VITALS: RESP 14; O2SAT 97
[2024-08-05 19:27] VITALS: BP 113/73; PULSE 80; RESP 14; TEMP 98; O2SAT 97
[2024-08-06 07:00] VITALS: RESP 16; O2SAT 97
[2024-08-06 08:00] VITALS: BP 108/77; PULSE 73; RESP 16; TEMP 97.6; O2SAT 97
[2024-08-06 19:30] VITALS: BP 125/80; PULSE 87; RESP 20; TEMP 97.5; O2SAT 99
[2024-08-06 20:00] VITALS: RESP 20; O2SAT 99
[2024-08-07 07:00] VITALS: BP 114/76; PULSE 72; RESP 16; TEMP 97.8; O2SAT 94
[2024-08-07 19:00] VITALS: RESP 14; O2SAT 96
[2024-08-07 20:00] VITALS: BP 118/72; PULSE 79; RESP 14; TEMP 98.4; O2SAT 96
[2024-08-08 07:00] VITALS: BP 119/73; PULSE 70; RESP 16; TEMP 98.2; O2SAT 98
[2024-08-08 19:00] VITALS: BP 101/70; PULSE 98; RESP 16; TEMP 97.8; O2SAT 99
[2024-08-08 20:00] VITALS: PULSE 80
[2024-08-09 07:00] VITALS: RESP 14; O2SAT 97
[2024-08-09 08:46] VITALS: BP 102/60; PULSE 68; RESP 14; TEMP 98.2; O2SAT 97
[2024-08-09 19:00] VITALS: RESP 16; O2SAT 96
[2024-08-09 20:00] VITALS: BP 103/73; PULSE 76; RESP 16; TEMP 97.7; O2SAT 96
[2024-08-10 07:30] VITALS: BP 119/75; PULSE 71; RESP 16; TEMP 97.8; O2SAT 97
[2024-08-10 19:00] VITALS: RESP 14; O2SAT 97
[2024-08-10 20:00] VITALS: BP 114/70; PULSE 81; RESP 14; TEMP 98.1; O2SAT 97
[2024-08-11 07:00] VITALS: RESP 16; O2SAT 98
[2024-08-11 08:00] VITALS: BP 116/79; PULSE 76; RESP 16; TEMP 97.5; O2SAT 98
[2024-08-11 19:00] VITALS: BP 112/65; PULSE 81; RESP 14; RESP 16; TEMP 98.8; O2SAT 96; O2SAT 98
[2024-08-12 07:00] VITALS: RESP 18; O2SAT 94
[2024-08-12 08:00] VITALS: BP 102/69; PULSE 69; RESP 18; TEMP 97.4; O2SAT 94
[2024-08-12 19:00] VITALS: BP 97/66; PULSE 86; RESP 14; TEMP 97.5; O2SAT 94; O2SAT 98
[2024-08-13 07:00] VITALS: RESP 14; O2SAT 98
[2024-08-13 08:00] VITALS: BP 111/72; PULSE 75; RESP 14; TEMP 97.9; O2SAT 98
[2024-08-13 13:29] LABS: BASOPHILS % (AUTO) 0.2 % (0-1); MONOCYTES % (AUTO) 5.3 % (2-12); NEUTROPHILS # (AUTO) 3.4 X10'3 (1.8-7.7)
[2024-08-13 13:32] LABS: EOSINOPHILS # (AUTO) 0.3 X10'3 (0-0.9); EOSINOPHILS % (AUTO) 1.8 % (0-6); HEMATOCRIT 40.6 % (42.0-52.0); HEMOGLOBIN 14.1 g/dl (14.0-17.9); LYMPHOCYTES # (AUTO) 13.8 X10'3 (1.1-4.8); LYMPHOCYTES % (AUTO) 74.3 % (21-51); MEAN CORPUSCULAR HEMOGLOBIN 31.2 PG (27.0-31.0); MEAN CORPUSCULAR HGB CONC 34.8 g/dL (33.0-36.5); MEAN CORPUSCULAR VOLUME 89.7 FL (78-98); NEUTROPHILS % (AUTO) 18.4 % (42-75); PLATELET COUNT 230 X10'3 (140-440); RED BLOOD COUNT 4.53 X10'6 (4.70-6.10); RED CELL DISTRIBUTION WIDTH 12.8 % (11.5-14.5); WHITE BLOOD COUNT 18.6 X10'3 (4.5-11.0)
[2024-08-13 13:35] LABS: ALANINE AMINOTRANSFERASE 67 U/L (12-78); ALBUMIN 3.9 G/DL (3.4-5.0); ALBUMIN/GLOBULIN RATIO 1.1 (1.1-1.5); ALKALINE PHOSPHATASE 124 IU/L (46-116); ANION GAP 6 (8-16); ASPARTATE AMINO TRANSFERASE 30 U/L (10-37); BILIRUBIN,TOTAL 0.3 MG/DL (0.1-1.0); BLOOD UREA NITROGEN 21 MG/DL (7-18); BUN/CREATININE RATIO 21.9 (10.0-20.0); CALCIUM 9.3 MG/DL (8.5-10.1); CHLORIDE 102 MMOL/L (99-107); CREATININE 0.96 MG/DL (0.60-1.10); GLUCOSE 108 MG/DL (70-104); POTASSIUM 4.4 MMOL/L (3.5-5.1); SODIUM 138 MMOL/L (135-145); TOTAL CARBON DIOXIDE 30.4 MMOL/L (24-32); TOTAL PROTEIN 7.4 G/DL (6.4-8.2); eCRCL 62 ML/MIN; eGFR 80 ML/MIN
[2024-08-13 13:55] LABS: PLATELET ESTIMATE NORMAL; TOTAL CELLS COUNTED 100
[2024-08-13 19:00] VITALS: RESP 18; O2SAT 99
[2024-08-13 20:00] VITALS: BP 120/73; PULSE 72; RESP 18; TEMP 98; O2SAT 97
[2024-08-14 07:20] VITALS: RESP 18; O2SAT 99
[2024-08-14 08:00] VITALS: BP 118/69; PULSE 81; RESP 16; TEMP 98.9; O2SAT 97
[2024-08-14 12:13] LABS: BILIRUBIN,URINE NEGATIVE (Neg); CLARITY,URINE CLEAR (Clear); COLOR,URINE YELLOW (Yellow); GLUCOSE, URINE NEGATIVE (Neg); KETONES,URINE NEGATIVE (Neg); LEUKOCYTE ESTERASE ,URINE NEGATIVE (Neg); NITRITES, URINE NEGATIVE (Neg); OCCULT BLOOD,URINE NEGATIVE (Neg); PH,URINE 6.5 (4.8-8.0); PROTEIN,URINE NEGATIVE (Neg); UROBILINOGEN,URINE 0.2 E.U/dL (0.2-1.0)
[2024-08-14 12:15] LABS: UA COLLECTION TYPE NON-SPECIFIED
[2024-08-14 20:00] VITALS: BP 113/71; PULSE 82; RESP 16; TEMP 96.2; O2SAT 97
[2024-08-15 07:00] VITALS: RESP 16; O2SAT 97
[2024-08-15 08:00] VITALS: BP 107/77; PULSE 81; RESP 16; TEMP 98.2; O2SAT 97
[2024-08-15 19:00] VITALS: RESP 16; O2SAT 96
[2024-08-15 20:00] VITALS: BP 111/68; PULSE 86; RESP 16; TEMP 98.5; O2SAT 96
[2024-08-16 07:30] VITALS: BP 125/60; PULSE 68; RESP 16; TEMP 97.7; O2SAT 98
[2024-08-16 07:52] VITALS: RESP 16; O2SAT 98
[2024-08-16 19:28] VITALS: RESP 16; O2SAT 98
[2024-08-16 20:00] VITALS: BP 117/70; PULSE 75; RESP 16; TEMP 97.6; O2SAT 98
[2024-08-17 07:00] VITALS: RESP 14; O2SAT 98
[2024-08-17 08:00] VITALS: BP 106/74; PULSE 78; RESP 14; TEMP 97.1; O2SAT 96
[2024-08-17 19:00] VITALS: RESP 16; O2SAT 100
[2024-08-17 20:00] VITALS: BP 117/76; PULSE 83; RESP 16; TEMP 98; O2SAT 100
[2024-08-18 07:35] VITALS: BP 103/64; PULSE 85; RESP 16; TEMP 98; O2SAT 98
[2024-08-18 08:36] VITALS: RESP 16; O2SAT 98
[2024-08-18 19:00] VITALS: RESP 14; O2SAT 100
[2024-08-18 19:49] VITALS: BP 111/70; PULSE 87; RESP 15; TEMP 98.9; O2SAT 97
[2024-08-19 07:00] VITALS: RESP 16; O2SAT 93
[2024-08-19 08:00] VITALS: BP 107/67; PULSE 71; RESP 16; TEMP 97.2; O2SAT 93
[2024-08-19 19:00] VITALS: RESP 14; O2SAT 98
[2024-08-19 20:00] VITALS: BP 114/76; PULSE 85; RESP 14; TEMP 98.8; O2SAT 98
[2024-08-20 07:00] VITALS: RESP 16; O2SAT 98
[2024-08-20 08:00] VITALS: BP 125/73; PULSE 77; RESP 16; TEMP 97.3; O2SAT 98
[2024-08-20 19:00] VITALS: BP 112/80; PULSE 80; RESP 18; TEMP 97.6; O2SAT 99
[2024-08-21 07:00] VITALS: RESP 16; O2SAT 98
[2024-08-21 08:00] VITALS: BP 113/71; PULSE 75; RESP 12; TEMP 98.6; O2SAT 97
[2024-08-21 19:00] VITALS: BP 113/67; PULSE 85; RESP 14; TEMP 98; O2SAT 95
[2024-08-22 07:00] VITALS: RESP 16; O2SAT 96
[2024-08-22 08:00] VITALS: BP 119/78; PULSE 86; RESP 16; TEMP 98.9; O2SAT 96
[2024-08-22 20:00] VITALS: BP 120/70; PULSE 91; RESP 14; TEMP 98.3; O2SAT 97
[2024-08-23 07:00] VITALS: RESP 16; O2SAT 99
[2024-08-23 08:00] VITALS: BP 122/81; PULSE 78; RESP 16; TEMP 98.9; O2SAT 99
[2024-08-23 20:00] VITALS: BP 118/78; PULSE 84; RESP 16; TEMP 97.5; O2SAT 96
[2024-08-24 07:30] VITALS: BP 127/70; PULSE 73; RESP 16; TEMP 97.3; O2SAT 97
[2024-08-24 19:00] VITALS: RESP 16; O2SAT 97
[2024-08-24 20:00] VITALS: BP 124/70; PULSE 88; RESP 16; TEMP 97.6; O2SAT 97
[2024-08-25 07:30] VITALS: BP 121/79; PULSE 71; RESP 12; TEMP 97.9; O2SAT 95
[2024-08-25 19:16] VITALS: BP 116/73; PULSE 78; RESP 20; TEMP 97.5; O2SAT 96
[2024-08-25 20:00] VITALS: RESP 20; O2SAT 96
[2024-08-26 07:00] VITALS: RESP 16; O2SAT 94
[2024-08-26 08:00] VITALS: BP 100/73; PULSE 75; RESP 16; TEMP 97.4; O2SAT 94
[2024-08-26 10:00] VITALS: BP 94/52
[2024-08-26 20:00] VITALS: BP 116/70; PULSE 78; RESP 18; TEMP 97.9; O2SAT 99
[2024-08-27 07:00] VITALS: RESP 14; O2SAT 96
[2024-08-27 08:00] VITALS: BP 100/73; PULSE 75; RESP 14; TEMP 97.9; O2SAT 96
[2024-08-27 10:16] VITALS: RESP 14; O2SAT 96
[2024-08-27 19:44] VITALS: BP 105/58; PULSE 86; RESP 18; TEMP 97.9; O2SAT 96
[2024-08-28 07:00] VITALS: BP 102/70; PULSE 67; RESP 16; TEMP 98.5; O2SAT 67; O2SAT 97
[2024-08-28 19:00] VITALS: BP 112/72; PULSE 87; RESP 16; TEMP 97.1; O2SAT 96; O2SAT 97
[2024-08-29 07:00] VITALS: RESP 16; O2SAT 97
[2024-08-29 08:00] VITALS: BP 111/73; PULSE 80; RESP 16; TEMP 98.9; O2SAT 97
[2024-08-29 19:00] VITALS: RESP 18; O2SAT 97
[2024-08-29 19:39] VITALS: BP 136/73; PULSE 89; RESP 18; TEMP 97.4; O2SAT 97
[2024-08-30 07:30] VITALS: BP 115/73; PULSE 66; RESP 16; TEMP 98.7; O2SAT 96
[2024-08-30 19:00] VITALS: RESP 20; O2SAT 97
[2024-08-30 19:35] VITALS: BP 114/66; PULSE 87; RESP 20; TEMP 97.9; O2SAT 97
[2024-08-31 07:30] VITALS: BP 126/65; PULSE 73; RESP 16; TEMP 98.5; O2SAT 99
[2024-08-31 19:00] VITALS: BP 123/73; PULSE 86; RESP 16; TEMP 97.2; O2SAT 97
[2024-09-01 07:00] VITALS: RESP 14; O2SAT 98
[2024-09-01 08:00] VITALS: BP 116/75; PULSE 67; RESP 14; TEMP 97.1; O2SAT 98
[2024-09-01 19:00] VITALS: BP 116/71; PULSE 86; RESP 12; TEMP 97.7; O2SAT 97
[2024-09-02 07:30] VITALS: BP 115/74; PULSE 66; RESP 16; TEMP 98.5; O2SAT 97
[2024-09-02 08:35] VITALS: RESP 16; O2SAT 97
[2024-09-02 19:00] VITALS: RESP 16
[2024-09-02 20:00] VITALS: BP 118/74; PULSE 82; RESP 16; TEMP 98.7; O2SAT 98
[2024-09-03 07:00] VITALS: RESP 18; O2SAT 93
[2024-09-03 08:00] VITALS: BP 122/71; PULSE 65; RESP 18; TEMP 97.5; O2SAT 93
[2024-09-03 19:46] VITALS: BP 105/69; PULSE 82; RESP 16; TEMP 98.5; O2SAT 98
[2024-09-04 07:00] VITALS: RESP 18; O2SAT 99
[2024-09-04 08:00] VITALS: BP 114/67; PULSE 67; RESP 18; TEMP 97.2; O2SAT 99
[2024-09-04 19:00] VITALS: BP 103/90; PULSE 72; RESP 18; TEMP 98.2; O2SAT 97
[2024-09-05 07:00] VITALS: BP 118/74; PULSE 68; RESP 16; TEMP 98.2; O2SAT 96
[2024-09-05 19:10] VITALS: RESP 18; O2SAT 96
[2024-09-05 20:00] VITALS: BP 126/76; PULSE 80; RESP 16; TEMP 98.9; O2SAT 98
[2024-09-06 07:00] VITALS: BP 112/65; PULSE 77; RESP 16; TEMP 98.6; O2SAT 97
[2024-09-06 19:00] VITALS: BP 137/83; PULSE 82; RESP 18; TEMP 98.4; O2SAT 100
[2024-09-07 07:00] VITALS: RESP 12; O2SAT 100
[2024-09-07 08:00] VITALS: BP 99/67; PULSE 76; RESP 12; TEMP 97.3; O2SAT 100
[2024-09-07 19:00] VITALS: RESP 18; O2SAT 97
[2024-09-07 20:00] VITALS: BP 120/73; PULSE 78; RESP 18; TEMP 98.4; O2SAT 97
[2024-09-08 07:00] VITALS: RESP 16; O2SAT 99
[2024-09-08 08:00] VITALS: BP 106/70; PULSE 71; RESP 16; TEMP 97.4; O2SAT 98
[2024-09-08 19:00] VITALS: RESP 19; O2SAT 98
[2024-09-08 19:23] VITALS: BP 129/76; PULSE 80; RESP 19; TEMP 97.7; O2SAT 98
[2024-09-09 07:00] VITALS: RESP 12; O2SAT 96
[2024-09-09 08:00] VITALS: BP 134/77; PULSE 70; RESP 12; TEMP 97.3; O2SAT 96
[2024-09-09 19:00] VITALS: RESP 16; O2SAT 99
[2024-09-09 19:38] VITALS: BP 101/72; PULSE 74; RESP 16; TEMP 97.8; O2SAT 99
[2024-09-10 07:00] VITALS: RESP 16; O2SAT 97
[2024-09-10 08:00] VITALS: BP 111/67; PULSE 74; RESP 16; TEMP 97.2; O2SAT 97
[2024-09-10 19:00] VITALS: RESP 18; O2SAT 97
[2024-09-10 20:00] VITALS: BP 109/75; PULSE 85; RESP 18; TEMP 98.2; O2SAT 97
[2024-09-11 08:00] VITALS: BP 113/68; PULSE 74; RESP 16; TEMP 97.7; O2SAT 97
[2024-09-11 19:47] VITALS: BP 117/76; PULSE 83; RESP 16; TEMP 97.7; O2SAT 98
[2024-09-12 07:00] VITALS: RESP 16; O2SAT 97
[2024-09-12 08:00] VITALS: BP 98/60; PULSE 68; RESP 16; TEMP 98; O2SAT 97
[2024-09-12 19:01] VITALS: RESP 16
[2024-09-12 20:50] VITALS: BP 114/79; PULSE 80; RESP 18; TEMP 97.5; O2SAT 98
[2024-09-13 07:00] VITALS: RESP 18; O2SAT 95
[2024-09-13 08:00] VITALS: BP 120/77; PULSE 77; RESP 18; TEMP 97.6; O2SAT 95
[2024-09-13 19:00] VITALS: RESP 16; O2SAT 98
[2024-09-13 20:00] VITALS: BP 118/71; PULSE 85; RESP 16; TEMP 97.6; O2SAT 98
[2024-09-14 07:00] VITALS: RESP 18; O2SAT 96
[2024-09-14 08:00] VITALS: BP 102/72; PULSE 73; RESP 18; TEMP 98.4; O2SAT 96
[2024-09-14 19:00] VITALS: RESP 18; O2SAT 98
[2024-09-14 19:36] VITALS: BP 137/84; RESP 18; TEMP 98.2; O2SAT 98
[2024-09-14 19:47] VITALS: BP 137/84; PULSE 86; RESP 18; TEMP 98.2; O2SAT 98
[2024-09-15 07:00] VITALS: BP 103/64; PULSE 70; RESP 12; TEMP 98; O2SAT 100
[2024-09-15 07:30] VITALS: RESP 12; O2SAT 100
[2024-09-15 19:25] VITALS: RESP 16; O2SAT 97
[2024-09-15 20:00] VITALS: BP 112/72; PULSE 83; RESP 16; TEMP 98.2; O2SAT 97
[2024-09-16 07:30] VITALS: BP 131/79; PULSE 72; RESP 16; TEMP 98.2; O2SAT 93
[2024-09-16 08:00] VITALS: RESP 16; O2SAT 93
[2024-09-16 19:31] VITALS: BP 116/78; PULSE 80; RESP 20; TEMP 97.9; O2SAT 100
[2024-09-16 19:32] VITALS: RESP 20; O2SAT 100
[2024-09-17 07:00] VITALS: RESP 14; O2SAT 97
[2024-09-17 08:00] VITALS: BP 116/74; PULSE 73; RESP 14; TEMP 98; O2SAT 97
[2024-09-17 19:10] VITALS: RESP 18; O2SAT 94
[2024-09-17 20:00] VITALS: BP 115/70; PULSE 83; RESP 18; TEMP 98; O2SAT 94
[2024-09-18 07:00] VITALS: RESP 18; O2SAT 95
[2024-09-18 08:00] VITALS: BP 117/78; PULSE 77; RESP 18; TEMP 97.8; O2SAT 95
[2024-09-18 19:00] VITALS: RESP 18; O2SAT 98
[2024-09-18 19:18] VITALS: BP 135/85; PULSE 87; RESP 18; TEMP 98.7; O2SAT 98
[2024-09-19 07:00] VITALS: RESP 14; O2SAT 98
[2024-09-19 08:00] VITALS: BP 131/73; PULSE 77; RESP 14; TEMP 97.9; O2SAT 98
[2024-09-19 19:00] VITALS: RESP 16; O2SAT 96
[2024-09-19 20:00] VITALS: BP 109/73; PULSE 80; RESP 14; TEMP 98; O2SAT 97
[2024-09-20 07:00] VITALS: RESP 16; O2SAT 97
[2024-09-20 08:00] VITALS: BP 123/78; PULSE 76; RESP 16; TEMP 98.1; O2SAT 97
[2024-09-20] MEDS ORDERED: OLAN10TA73 PO (13:29)
[2024-09-20] MEDS ORDERED: METO-395 PO (13:29)
[2024-09-20] MEDS ORDERED: FLUV25TA14 PO (13:29)
[2024-09-20] MEDS ORDERED: ATOR40TA14 PO (13:29)
[2024-09-20] MEDS ORDERED: MULT-25 PO (13:29)
[2024-09-21] MEDS ORDERED: docusate sod 100mg capsule PO ONE (08:00)
== END 2024-09-20 15:30 | disposition home or self-care (01) | DRG 750 ==
LOC: ADULT MH 19:30
PROVIDERS: ADMIT Psychiatry & Neurology Psychiatry; ATTEND Psychiatry & Neurology Psychiatry
PROC: GZHZZZZ Group Psychotherapy (ICD-10-PCS; principal; 2024-06-28)
PROC: GZ51ZZZ Individual Psychotherapy, Behavioral (ICD-10-PCS; 2024-06-28)
DX: F25.0 Schizoaffective disorder, bipolar type (principal); I95.9 Hypotension, unspecified; N17.9 Acute kidney failure, unspecified; C83.5 Lymphoblastic (diffuse) lymphoma; D64.9 Anemia, unspecified; F23 Brief psychotic disorder; E86.0 Dehydration; E78.00 Pure hypercholesterolemia, unspecified; F19.10 Other psychoactive substance abuse, uncomplicated; K59.00 Constipation, unspecified; I10 Essential (primary) hypertension; Z59.00 Homelessness unspecified; Z79.899 Other long term (current) drug therapy
CPT/HCPCS: 36415; 80053; 80061; 81003; 82272; 82607; 82728; 83036; 83540; 83550; 85007; 85025; 87081; A6250

== ENCOUNTER 2025-07-11 21:03 | Emergency (ER) | payer MEDICAID ==
[~2025-07-11] VITALS: Ht 175.3 cm; Wt 63.0 kg
[~2025-07-11 21:03] MED LIST changes: +ATOR40TA PO; -ATOR40TA72 PO; +BUPR-94 PO; -FLUV100T21 PO; -LISI2.5T14 PO; +LORA-269 PO; -METO-395 PO; -MULT-1085 PO; -NICO-907 BC; -OLAN20TA19 PO; -OLAN5TAB75 PO; +ZOLP5TAB18 PO
[2025-07-11 21:51] LABS: MEAN PLATELET VOLUME 7.9 FL (7.4-10.4)
[2025-07-11 21:53] LABS: RED CELL DISTRIBUTION WIDTH 13.4 % (11.5-14.5)
[2025-07-11 22:08] LABS: CREATININE 1.03 MG/DL (0.60-1.10); TOTAL CARBON DIOXIDE 26.5 MMOL/L (24-32); eCRCL 66 ML/MIN; eGFR 73 ML/MIN
[2025-07-11 22:10] LABS: ETHANOL < 10 MG/DL (<10)
[2025-07-11 22:53] LABS: URINE AMPHETAMINE SCREEN NEGATIVE (Neg); URINE BARBITUATE SCREEN NEGATIVE (Neg); URINE BENZODIAZEPINES SCREEN NEGATIVE (Neg); URINE CANNABINOID SCREEN POSITIVE (Neg); URINE COCAINE SCREEN NEGATIVE (Neg); URINE METHADONE SCREEN NEGATIVE (Neg); URINE OPIATE SCREEN NEGATIVE (Neg); URINE PHENCYCLIDINE SCREEN NEGATIVE (Neg)
[2025-07-11 22:59] LABS: LEUKOCYTE ESTERASE ,URINE NEGATIVE (Neg); NITRITES, URINE NEGATIVE (Neg); OCCULT BLOOD,URINE NEGATIVE (Neg)
[2025-07-11 23:02] LABS: UA COLLECTION TYPE NON-SPECIFIED
--- NOTE | 2025-07-11 23:19 | Physician Documentation ---
History of Present Illness ~ Chief Complaint: Mental Health Eval Stated Complaint: MH Time Seen by MD: 23:13 Primary Medical Doctor: [facility] in [place] Source: patient, family, old records HPI This 60-year-old male with a history of schizophrenia and lymphocytic leukemia was brought in by caregiver due to bizarre behavior and disorganized speech and thought process. Patient is noted by caregiver to have had multiple episodes of taking off his clothes in public places and does not have the ability to take care of himself. Medication Reconciliation Allergies: Coded Allergies: No Known Allergies (Unverified , 07/07/25) Scheduled Atorvastatin Calcium* (Lipitor*), 1 TAB PO DAILY, (Reported) Bupropion Hcl SR* (Wellbutrin SR*), 2 TAB PO Q24H, (Reported) Lorazepam (Ativan), 1 TAB PO TID, (Reported) Zolpidem Tartrate* (Ambien*), 1 TAB PO HS, (Reported) Discontinued Medications Bupropion Hcl (Wellbutrin Xl), 300 MG PO DAILY Discontinued Reason: Other Fluvoxamine Maleate (Fluvoxamine Maleate), 1 TAB PO DAILY, (Reported) Lorazepam (Ativan), 1 TAB PO TID Discontinued Reason: Other Lorazepam (Ativan), 1 TAB PO TID PRN for anxiety, (Reported) Discontinued Reason: Other Risperidone (Risperidone), 1 TAB PO HS, (Reported) Zolpidem Tartrate (Zolpidem Tartrate), 5 MG PO HS Discontinued Reason: Other Zolpidem Tartrate* (Ambien*), 1 TAB PO HS PRN for sleep, (Reported) Discontinued Reason: Other Past Medical History Past Medical History: High Cholesterol, Hypertension, Leukemia, Psychosis, Schizophrenia Patient History: Unable to answer questions Alcohol Use: None Drug Use: marijuana Lives with: Family, Other Lives In: Home Occupation: disabled Review of Systems ROS As stated above in the HPI, otherwise all systems are reviewed and negative. Physical Exam Vital Signs: Temperature: 98.3, Heart Rate: 85, Respiratory Rate: 14, BP: 139/83, Pulse Oximetry: 98, Weight: 63.000 Oxygen Flow Rate: 0 Physical Exam VITALS: Reviewed and as above. GENERAL: Alert, nontoxic appearing, no apparent distress. HEENT: PERRLA, EOMI RESPIRATORY: No increased work of breathing, no respiratory distress, speaking in full clear sentences clear lung sounds in all roth CHEST: Nontender to palpation CV: Regular rate and rhythm no murmur BACK: Nontender to palpation, no CVA tenderness GI: Soft, nondistended, nontender, no rebound, no guarding, bowel sounds present MUSCULOSKELETAL: No tenderness to palpation SKIN: Warm and dry NEURO: GCS 15, oriented to person and place only PSYCH: Bizarre behavior and affect Progress Results/Orders Results/Orders Vital Signs 07/11/25 07/11/25 07/11/25 07/12/25 21:13 21:13 21:30 08:40 Temp 98.3 98.3 Pulse 85 85 Resp 14 14 18 B/P (MAP) 139/83 139/83 (101) Pulse Ox 98 98 O2 Flow Rate 0 07/12/25 07/12/25 07/12/25 07/12/25 08:42 11:49 13:16 17:28 Temp 97.8 97.9 Pulse 98 107 Resp 16 16 16 B/P (MAP) 121/76 (91) 108/69 (82) Pulse Ox 97 98 O2 Flow Rate 0 0 07/12/25 07/13/25 07/13/25 07/13/25 19:35 03:22 05:34 07:10 Temp 98.1 Pulse 93 Resp 16 16 16 16 B/P (MAP) 135/93 (107) Pulse Ox 95 O2 Flow Rate 0 07/13/25 07/13/25 13:33 16:11 Temp 97.0 Pulse 88 Resp 18 16 B/P (MAP) 137/90 (106) Pulse Ox 97 O2 Flow Rate 0 Laboratory Tests Test 07/11/25 21:27 07/11/25 22:00 07/11/25 22:04 White Blood Count 25.2 *H Red Blood Count 3.94 L Hemoglobin 12.1 L Hematocrit 35.1 L Mean Corpuscular Volume 89.0 Mean Corpuscular Hemoglobin 30.6 Mean Corpuscular Hemoglobin Concent 34.4 Red Cell Distribution Width 13.4 Platelet Count 313 Mean Platelet Volume 7.9 Neutrophils (%) (Auto) 17.2 L Lymphocytes (%) (Auto) 78.9 H Monocytes (%) (Auto) 3.4 Eosinophils (%) (Auto) 0.2 Basophils (%) (Auto) 0.3 Neutrophils # (Auto) 4.3 Lymphocytes # (Auto) 19.9 H Monocytes # (Auto) 0.8 Eosinophils # (Auto) 0.0 Basophils # (Auto) 0.1 CBC Comment Differential Total Cells Counted 100 Neutrophils % (Manual) 16.0 L Lymphocytes % (Manual) 82.0 H Monocytes % (Manual) 2.0 Smudge Cells 2+ Platelet Estimate Normal Red Blood Cell Morphology Perf Basophilic Stippling Sodium Level 134 L Potassium Level 3.8 Chloride Level 96 L Carbon Dioxide Level 26.5 Anion Gap 12 Blood Urea Nitrogen 22 H Creatinine 1.03 Estimated GFR/1.73 m2 73 BUN/Creatinine Ratio 21.4 H Glucose Level 134 H Calcium Level 8.9 Total Bilirubin 0.8 Aspartate Amino Transf (AST/SGOT) 37 Alanine Aminotransferase (ALT/SGPT) 26 Alkaline Phosphatase 91 Total Protein 6.9 Albumin 3.6 Globulin 3.3 Albumin/Globulin Ratio 1.1 Thyroid Stimulating Hormone (TSH) 2.68 Chemistry Comments Ethyl Alcohol Level < 10 SARS-CoV-2 Antigen (Rapid) Negative Urine Specimen Description Non-specified Urine Color Yellow Urine Clarity Clear Urine pH 6.5 Urine Specific [place] 1.025 Urine Protein Negative Urine Glucose (UA) Negative Urine Ketones 40 H Urine Occult Blood Negative Urine Nitrite Negative Urine Bilirubin Small Urine Urobilinogen 2.0 H Urine Leukocyte Esterase Negative Volume Urine Centrifuged 10 ml Urine Comment Urine Opiates Screen Negative Urine Methadone Screen Negative Urine Fentanyl Screen Negative Urine Barbiturates Screen Negative Urine Phencyclidine Screen Negative Urine Amphetamines Screen Negative Urine Benzodiazepines Screen Negative Urine Cocaine Screen Negative Urine Cannabinoids Screen Positive Drug Screen Comment Medical Decision Making Findings This 60-year-old male with history of schizophrenia and lymphocytic leukemia presented to the emergency department by way of his caregiver due to bizarre behavior and inability to take care of himself, patient is otherwise well- appearing and no physical symptoms are reported. Due to patient's bizarre behavior and inability take care of himself he will be placed on a 1798 mental health hold due to grave disability. Physical exam was benign, lab work noted f or leukocytosis however review of labs indicate chronic finding this is consistent with the patient's history of lymphocytic leukemia. There was no evidence of acute medical condition, patient is appropriate for outpatient follow up. Transfer orders for [facility]: At this time there is no evidence of an emergent medical condition that would preclude (admission/transfer) to a psychiatric unit via [facility] protocol for further psychiatric, as well as medical evaluation and treatment. At this time I have no reason to believe that transfer via [facility] protocol would have serious medical compromise in the patient's health. Differential Dx:Considerations: Include: Alcohol abuse, Anxiety, Bipolar disorder, Conversion disorder, Depression, Encephaloathy, Homicidal, Panic disorder, Personality disorder, Schizophrenia, Substance abuse, Suicidal Departure Time of Disposition: 23:25 Disposition: 30 STILL A PATIENT Impression: Primary Impression: Mental disorder Additional Impressions: Gravely disabled History of schizophrenia History of chronic lymphocytic leukemia Condition: Stable Additional Instructions: Transfer orders for [facility]: At this time there is no evidence of an emergent medical condition that would preclude (admission/transfer) to a psychiatric unit via [facility] protocol for further psychiatric, as well as medical evaluation and treatment. At this time I have no reason to believe that transfer via [facility] protocol would have serious medical compromise in the patient's health. Please follow up with your primary care provider in the next few days. Please return to the emergency department for any new or worsening concerning symptoms. Referrals: NO PRIMARY CARE PROVIDER (PCP) Education Educated: Family Signature Scribe Signature: No scribe Attestation: The note accurately reflects work and decisions made by me.KELSEY Espinoza 07/11/25 23:27 Parts of this note were created using [email or web address] voice recognition software program. While efforts were made to correct any mistakes made by this voice recognition software program, nonsensical phrases may remain in this note. In addition, there may be errors and syntax, grammar, content and spelling. Addendum Pt signed out to me as part of their psychiatric ED evaluation. Pt resting well. Vital signs within expected ranges. This 60-year-old male with a history of schizophrenia and lymphocytic leukemia w as brought in by caregiver due to bizarre behavior and disorganized speech and thought process. Patient is noted by caregiver to have had multiple episodes of taking off his clothes in public places and does not have the ability to take care of himself. Brief Physical Examination: Alert and appropriately oriented. No signs of respiratory distress. Able to ambulate and move all extremities. Medical evaluation does not indicate metabolic derangement. Awaiting final disposition. Though possibly present, patient's symptoms are more consistent with psychiatric concerns than syndromes related to recreational drug use. No evidence of DT's while in the ED during my shift. Ambulating without difficulty. Speaking in full sentences. Easily arousable and interactive. Hemodynamically stable. The patient is currently awaiting Behavioral Health final evaluation and disposition. SWAPNA BRAMBILA Jul 11, 2025 23:19 BUCKY SANCHEZ MD Jul 13, 2025 07:19
[2025-07-12 01:55] LABS: LYMPHOCYTES % (MANUAL) 82.0 % (21-51); MONOCYTES % (MANUAL) 2.0 % (2-12); NEUTROPHILS % (MANUAL) 16.0 % (42-75)
[2025-07-12 01:56] LABS: PLATELET ESTIMATE NORMAL
[2025-07-12] MEDS ORDERED: ZOLP5TAB19 PO (07:14)
[2025-07-12] MEDS ORDERED: LORA-269 PO (07:14)
[2025-07-12] MEDS ORDERED: BUPR150T8 PO (07:14)
[2025-07-12] MEDS: buPROPion SR 150mg tablet PO SCH (08:40)
[2025-07-13 16:11] VITALS: BP 137/90; PULSE 88; TEMP 97; O2SAT 97
[2025-07-13 21:31] VITALS: RESP 20
== END 2025-07-14 07:16 ==
LOC: ER 21:04
DX: F99 Mental disorder, not otherwise specified (principal); E78.00 Pure hypercholesterolemia, unspecified; F12.90 Cannabis use, unspecified, uncomplicated; F20.9 Schizophrenia, unspecified; I10 Essential (primary) hypertension; Z79.899 Other long term (current) drug therapy; Z20.822 Contact with and (suspected) exposure to COVID-19; Z85.6 Personal history of leukemia
CPT/HCPCS: 36415; 80053; 80305; 80320; 81003; 84443; 85007; 85025; 87811; 99285